=== PATIENT | female | born 1940 | race Caucasian/White ===

== ENCOUNTER 2017-01-12 09:22 | Inpatient (IN) | payer OTHER ==
[~2017-01-12] VITALS: Ht 149.9 cm; Wt 44.1 kg
[~2017-01-12 09:22] MED LIST: ATOR40TA68 PO; CLON-412 PO; DICL75TA2 PO; ESCI10TA48 PO; FELO5TAB35 PO; LOSA1TAB20 PO; TRAZ100T15 PO; ZOLP5TAB PO
[2017-01-12] MEDS ORDERED: SOD CHLORIDE 0.9% 1,000 ML IV STA (09:41)
[2017-01-12] MEDS ORDERED: ONDANSETRON 4 MG INJ IV STA (09:41)
[2017-01-12 10:07] LABS: BASOPHILS % 0.2 % (0.0-2.0); HEMOGLOBIN 7.7 g/dl (12.0-16.0); LYMPHOCYTES # 0.7 10^3/ul (0.8-2.9); LYMPHOCYTES % 4.4 % (15.0-51.0); MEAN CORPUSCULAR HEMOGLOBIN 31.4 pg (29.0-33.0); MEAN CORPUSCULAR HGB CONC 33.5 g/dl (32.0-37.0); MEAN CORPUSCULAR VOLUME 93.9 fl (82.0-101.0); MONOCYTE # 0.2 10^3/ul (0.3-0.9); MONOCYTES % 1.4 % (0.0-11.0); NEUTROPHILS % 92.8 % (39.0-77.0); PLATELET COUNT 253 10^3/UL (140-415); RED BLOOD COUNT 2.45 10^6/ul (4.20-5.40); WHITE BLOOD COUNT 14.7 10^3/ul (4.8-10.8)
[2017-01-12 10:32] LABS: ALBUMIN 3.5 g/dl (3.3-4.9); ALBUMIN/GLOBULIN RATIO 1.12; BILIRUBIN,INDIRECT 0.1 mg/dl (0-1.1); BILIRUBIN,TOTAL 0.1 mg/dl (0.2-1.3); CALCIUM 8.8 mg/dl (8.4-10.2); CREATININE 4.52 mg/dl (0.44-1.00); POTASSIUM 5.1 mmol/L (3.5-5.1); TOTAL PROTEIN 6.6 g/dl (6.1-8.1)
[2017-01-12] MEDS ORDERED: SOD CHLORIDE 0.9% 250 ML IV ONE (10:32)
[2017-01-12 10:44] LABS: TROPONIN-I 0.026 ng/ml (0.00-0.12)
[2017-01-12 12:00] VITALS: TEMP 97.6
[2017-01-12] MEDS ORDERED: ONDANSETRON 4 MG INJ IV PRN ×2 (12:00→16:00)
[2017-01-12] MEDS ORDERED: ACETAMINOPHEN 325 MG TAB PO PRN ×2 (12:00→16:00)
--- NOTE | 2017-01-12 12:46 | CONS ---
Date/Time of Note Date/Time of Note DATE: 01/12/17 TIME: 12:45 Assessment/Plan Assessment/Plan Additional Assessment/Plan 1. acute kidney injury 2/2 severe prerenal azotemia, no previous Cr available for comparison 2. rule out CKD 3. HTN 4. hyperlipidemia 5. anxiety, depression plan: seen in ED, NS at 100 cc/hr URine studies has been ordered, Renal US has been ordered CK total, Uric acid Iron panel sent by sc, stool for occult blood, PRBC as needed will follow up Thanks for consultation Consultation Date/Type/Reason Admit Date/Time 01/12/2017 Date of Consultation: Jan 12, 2017 Type of Consultation: NEPHROLOGY Reason for Consultation acute renal failure Referring Provider: ALEXANDRA ELIZONDO 76-year-old female with hypertension who presents with nausea and diarrhea. She denies vomiting. The symptoms started yesterday. She has "stomach pain". She has had no treatment as of yet. She denies fevers. She was brought in by ambulance. She denies any bleeding at this time. She does not remove the name of her primary doctor. she is noted to have BUN 88, Cr 4.52, afebrile, no chest pain, no palpitaton, renal has been consulted for REBECCA Constitutional: no complaints Eyes: no complaints ENT: no complaints Respiratory: shortness of breath Cardiovascular: lightheadedness, no complaints Gastrointestinal: diarrhea, nausea Genitourinary: no complaints Musculoskeletal: no complaints Skin: no complaints Neurologic: no complaints Endocrine: no complaints Lymphatic: no complaints Psychological: no complaints Immunologic: no complaints Past Medical History Medical History: high cholesterol, hypertension, other (anxiety, depression, smokin g) Past Surgical History Past Surgical Hx: other (Right lumpectomy, bilateral knee surgery ) Family History Significant Family History: no pertinent family hx Social History Alcohol Use: none Smoking Status: Current some day smoker Exam/Review of Systems Vital Signs Vitals Vital Signs Date Time Temp Pulse Resp B/P Pulse Ox O2 Delivery O2 Flow Rate FiO2 01/12/17 12:00 97.6 96 16 113/58 99 Room Air Exam Constitutional: alert, other (dry mucous membrane ) Psych: no complaints Head: normocephalic Eyes: EOMI, nl conjunctiva ENMT: nl external ears & nose, nl lips & teeth Neck: non-tender, supple Respiratory: clear to auscultation, normal air movement Cardiovascular: nl pulses, regular rate and rhythm Gastrointestinal: soft Musculoskeletal: nl extremities to inspection, nl gait and stance Extremities: normal pulses Neurological: INFORMATICA ARCHITECT II-XII intact Skin: other (dry skin and mucous membrane ) Lymph: nl lymph nodes Results Result Diagram: 01/12/17 0945 01/12/17 0945 Results 24 hrs Laboratory Tests Test 01/12/17 09:45 White Blood Count 14.7 #H Red Blood Count 2.45 #L Hemoglobin 7.7 #L Hematocrit 23.0 #L Mean Corpuscular Volume 93.9 Mean Corpuscular Hemoglobin 31.4 Mean Corpuscular Hemoglobin Concent 33.5 Red Cell Distribution Width 15.0 H Platelet Count 253 Mean Platelet Volume 9.0 # Neutrophils % 92.8 H Lymphocytes % 4.4 L Monocytes % 1.4 Eosinophils % 0.0 Basophils % 0.2 Nucleated Red Blood Cells % 0.0 Neutrophils # (Manual) 14 H Lymphocytes # 0.7 L Monocytes # 0.2 L Eosinophils # 0.0 Basophils # 0.0 Nucleated Red Blood Cells # 0.0 Sodium Level 137 Potassium Level 5.1 Chloride Level 97 Carbon Dioxide Level 21 Anion Gap 24 H Blood Urea Nitrogen 88 H Creatinine 4.52 H Glucose Level 124 Calcium Level 8.8 Total Bilirubin 0.1 L Direct Bilirubin 0.00 Indirect Bilirubin 0.1 Aspartate Amino Transf (AST/SGOT) 34 Alanine Aminotransferase (ALT/SGPT) 45 Alkaline Phosphatase 115 Troponin I 0.026 Total Protein 6.6 Albumin 3.5 Globulin 3.10 Albumin/Globulin Ratio 1.12 Lipase 34 JESSE STELEE MD Jan 12, 2017 12:46
[2017-01-12 12:59] LABS: RETICULOCYTE COUNT % 1.5 % (0.5-1.5)
--- NOTE | 2017-01-12 13:34 | ERA ---
ER Documentation Chief Complaint Date/Time DATE: 01/12/17 TIME: 13:32 Chief Complaint flu like symptoms weakness HPI Patient is a 76-year-old female with hypertension who presents with nausea and diarrhea. She denies vomiting. The symptoms started yesterday. She has "stomach pain". She has had no treatment as of yet. She denies fevers. She was brought in by ambulance. She denies any bleeding at this time. She does not remove the name of her primary doctor. ROS All systems reviewed and are negative except as per history of present illness. Medications Home Meds Active Scripts Clonazepam* (Klonopin*) 1 Mg Tablet, 1 MG PO Q8H Y for ANXIETY, #30 TAB Prov:REGAN FERRELL 11/08/14 Reported Medications Escitalopram Oxalate* (Escitalopram Oxalate*) 10 Mg Tablet, 10 MG PO DAILY, TAB 11/07/14 Atorvastatin* (Atorvastatin*) 40 Mg Tablet, 40 MG PO HS, TAB 11/07/14 Trazodone Hcl* (Trazodone Hcl*) 100 Mg Tablet, 100 MG PO HS Y for INSOMNIA, TAB 11/07/14 Diclofenac Sodium* (Diclofenac Sodium*) 75 Mg Tablet.dr, 75 MG PO BID, TAB 11/07/14 Losartan-Hydrochlorothiazide (Losartan-HCTZ) 100-25 Mg Tab, 1 TAB PO DAILY, TAB 11/07/14 Felodipine* (Felodipine*) 5 Mg Tab.sr.24h, 5 MG PO BID, TAB.SA 11/07/14 Zolpidem Tartrate* (Ambien*) 5 Mg Tablet, 2.5 MG PO HS Y for INSOMNIA, TAB 11/07/14 Allergies Allergies: Coded Allergies: No Known Allergy (Unverified , 11/08/14) PMhx/Soc History of Surgery: Yes (bilateral knee sx, Rt lumpectomy) Anesthesia Reaction: No Hx Neurological Disorder: No Hx Cardiac Disorders: Yes (htn, high cholesterol) Hx Psychiatric Problems: Yes (anxiety, depression) Hx Miscellaneous Medical Probl: No Hx Alcohol Use: No Hx Substance Use: No Hx Tobacco Use: Yes Smoking Status: Current some day smoker FmHx Family History: No diabetes Physical Exam Vitals Vital Signs Date Time Temp Pulse Resp B/P Pulse Ox O2 Delivery O2 Flow Rate FiO2 01/12/17 12:00 97.6 96 16 113/58 99 Room Air 01/12/17 09:32 98.1 60 20 117/58 99 01/12/17 09:32 98.6 68 18 117/60 96 Physical Exam Const: No acute distress Head: Atraumatic Eyes: Normal Conjunctiva ENT: Normal External Ears, Nose and Mouth. Neck: Full range of motion..~ No meningismus. Resp: Clear to auscultation bilaterally Cardio: Regular rate and rhythm, no murmurs Abd: Soft, non tender, non distended. Normal bowel sounds Skin: Pale skin Back: No midline or flank tenderness Ext: No cyanosis, or edema Neur: Awake and alert Psych: Normal Mood and Affect Result Diagram: 01/12/1745 01/12/1745 Results 24 hrs Laboratory Tests Test 01/12/17 09:45 White Blood Count 14.710^3/ul Red Blood Count 2.4510^6/ul Hemoglobin 7.7g/dl Hematocrit 23.0% Mean Corpuscular Volume 93.9fl Mean Corpuscular Hemoglobin 31.4pg Mean Corpuscular Hemoglobin Concent 33.5g/dl Red Cell Distribution Width 15.0% Platelet Count 99667^3/UL Mean Platelet Volume 9.0fl Neutrophils % 92.8% Lymphocytes % 4.4% Monocytes % 1.4% Eosinophils % 0.0% Basophils % 0.2% Nucleated Red Blood Cells % 0.0/100WBC Neutrophils # (Manual) 1410^3/ul Lymphocytes # 0.710^3/ul Monocytes # 0.210^3/ul Eosinophils # 0.010^3/ul Basophils # 0.010^3/ul Nucleated Red Blood Cells # 0.010^3/ul Absolute Reticulocyte Count 0.036X10^6 Percent Reticulocyte Count 1.5% Sodium Level 137mmol/L Potassium Level 5.1mmol/L Chloride Level 97mmol/L Carbon Dioxide Level 21mmol/L Anion Gap 24 Blood Urea Nitrogen 88mg/dl Creatinine 4.52mg/dl Glucose Level 124mg/dl Calcium Level 8.8mg/dl Total Bilirubin 0.1mg/dl Direct Bilirubin 0.00mg/dl Indirect Bilirubin 0.1mg/dl Aspartate Amino Transf (AST/SGOT) 34IU/L Alanine Aminotransferase (ALT/SGPT) 45IU/L Alkaline Phosphatase 115IU/L Troponin I 0.026ng/ml Total Protein 6.6g/dl Albumin 3.5g/dl Globulin 3.10g/dl Albumin/Globulin Ratio 1.12 Lipase 34U/L Current Medications Medications (Trade) Dose Ordered Sig/Jodi Route PRN Reason Start Time Stop Time Status Last Admin Dose Admin Sodium Chloride (NS) 1,000 ml @ 1,000 mls/hr Q1H STAT IV 01/12/17 09:41 01/12/17 10:40 DC 01/12/17 10:07 Ondansetron HCl 4 mg 4 mg ONCE STAT IV 01/12/17 09:41 01/12/17 09:43 DC 01/12/17 10:07 Sodium Chloride (NS) 250 ml @ 0 mls/hr Q0M ONCE IV 01/12/17 10:32 01/12/17 10:34 DC 01/12/17 10:32 Ondansetron HCl (Zofran Inj) 4 mg BRIDGE ORDER PRN IV NAUSEA AND/OR VOMITING 01/12/17 12:00 01/13/17 11:59 Acetaminophen 650 mg 650 mg ER BRIDGE PRN PO MILD PAIN/FEVER 01/12/17 12:00 01/13/17 11:59 Sodium Chloride (NS) 1,000 ml @ 100 mls/hr Q10H IV 01/12/17 13:00 Procedures/MDM Smoking Cessation Therapy: Pt. was lectured for greater than 3 minutes on the health risks of continued smoking and the benefits of cessation. Patient is a 76-year-old female presents with acute anemia as well as acute renal failure. Her creatinine has gone from 1-4.5. The patient also has a hemoglobin of 7.7 and appears pale. She will be treated with normal saline fluid resuscitation and 1 unit of packed red blood cells. I spoke with Dr. Olivier from [facility] who will admit the patient to a medical surgical bed. I also spoke with Dr. Art Gil for consultation from nephrology. Critical Care: Time: 35 minutes excluding all billable procedures. Treatments/Evaluations: Close monitoring and treatment of unstable vital signs, cardiorespiratory, and neurologic status, while maintaining tight balance of fluid, respiratory, and cardiac interventions. Departure Diagnosis: Primary Impression: Acute renal failure Qualified Code: N17.9 - Acute renal failure, unspecified acute renal failure type Additional Impression: Anemia Qualified Code: D64.9 - Anemia, unspecified type Condition: KYLIE Sands MD Jan 12, 2017 13:34
--- NOTE | 2017-01-12 14:24 | RADRPT ---
PROCEDURE: Retroperitoneal US. CLINICAL INDICATION: acute renal failure TECHNIQUE: Multiple sonographic images of the retroperitoneum were obtained. The images were revi ewed on a PACS workstation. COMPARISON: No prior studies are available for comparison. FINDINGS: The right kidney measures 11.0 x 4.1 cm. The left kidney measures 6.3 x 3.0 cm. The right renal kenneth ex measures up to 1 cm in thickness. The renal parenchymal echotexture is in the left greater than right kidneys. There is no hydronephrosis. There is no focal renal mass or calcification seen. The bladder is grossly unremarkable. IMPRESSION: Bilateral kidneys are atrophic and echogenic, more on the left than the right, likely due to medical renal disease. Correlation with BUN and creatinine levels is recommended. No hydronephrosis bilaterally. The bladder is grossly unremarkable. RPTAT: EE Physician Gunnar Date Time Electronically viewed and signed by Physician Gunnar on 01/12/2017 14:24 /
[2017-01-12] MEDS: SOD CHLORIDE 0.9% 1,000 ML IV SCH ×2 (15:18→22:34)
[2017-01-12 15:25] LABS: IRON 90 ug/dl (35-150)
[2017-01-12 15:34] LABS: TOTAL IRON BINDING CAPACITY 195 ug/dl (241-421)
--- NOTE | 2017-01-12 15:56 | HP ---
Date/Time of Note Date/Time of Note DATE: 01/12/17 TIME: 15:56 Assessment/Plan VTE Prophylaxis VTE Prophylaxis Intervention: SCD's Lines/Catheters Urinary Cath still in place: No Assessment/Plan Assessment/Plan 76-year-old female with: 1. Acute kidney injury, prerenal azotemia, renal ultrasound with signs of possible chronic medical renal disease, appreciate recommendations from Dr. Art Gil, continue IV fluids for now, Additional workup including total CK, uric acid pending. Also urine studies ordered by Dr. Gil pending Renal ultrasound Patient having subacute diarrhea, diarrhea workup ordered. Strict I's and O Renal diet Repeat BMP in a.m. 2. Subacute diarrhea for the past 3 weeks at least, patient likely prerenal azotemia from ongoing diarrhea. Apparently she already had authorization to have a colonoscopy by Dr. Hook Check stool studies Dr. Keen has been informed, he will see the patient to see if he needs to do a colonoscopy on this admission 3. Anemia, symptomatic, severe, acute on chronic likely. Patient to receive 2 units of packed red blood cells today No signs of acute bleeding, fecal occult blood pending Check CBC in a.m., additional transfusion as needed 4. Hypertension: Resume home medications and hold if needed 5. Anxiety/major depressive disorder: Continue home medications 6. Hyperlipidemia: Continue statin Prophylaxis: Pepcid for GI prophylaxis, SCDs to lower extremity for DVT prophylaxis Disposition: IV fluids, GI workup and evaluation, nephrology following. HPI/ROS Admit Date/Time Admit Date/Time 01/12/2017 Hx of Present Illness Chief complaint: Nausea, generalized weakness History of presenting illness: This is a 76-year-old female, with history of hypertension, chronic pain, major depressive disorder, anemia recently diagnosed , ongoing watery diarrhea for the past 3 weeks at least who was in the process of starting lab work and for colonoscopy that was planned to be done soon by Dr. Hook and she presented to the ER today with reported nausea and generalized weakness. Patient is found to have acute kidney injury, creatinine is above 4, BUN up to 88. She is also anemic with hemoglobin down to 7.7, dehydrated with prerenal azotemia. Patient reports that again for the past 3 weeks at least she has been having watery diarrhea multiple episodes, she denies any melena or hematochezia. She denies any hematemesis. She reports nausea but no vomiting. She reports increasing generalized weakness and dyspnea on exertion. She denies any previous cardiac disease. She denies chest pain or any other focal weakness. She has been evaluated by nephrology in the emergency department already, she does have prerenal azotemia requiring IV fluids currently. She is also severely anemic hemoglobin is likely less than 7.7, she received 1 unit of packed red blood cell and will receive an additional unit now. We will complete her diarrhea workup with a stool studies to be sent from the hospital, also I will contact Dr. Hook to see if he would plan to do her colonoscopy while she is inpatient. ROS Eyes: no complaints ENT: no complaints Respiratory: shortness of breath Cardiovascular: lightheadedness, no complaints Gastrointestinal: diarrhea, nausea Genitourinary: no complaints Musculoskeletal: no complaints Skin: no complaints Neurologic: no complaints Lymphatic: no complaints Psychological: no complaints Immunologic: no complaints PMH/Family/Social Past Medical History Hypertension Hyperlipidemia Chronic pain Anxiety/major depressive disorder Medical History: high cholesterol, hypertension, other (anxiety, depression, smokin g) Past Surgical History Status post left breast lumpectomy remotely Past Surgical Hx: other (Right lumpectomy, bilateral knee surgery ) Family History Significant Family History: no pertinent family hx Social History Alcohol Use: none Smoking Status: Former smoker Drug Use: none Exam/Review of Systems Vital Signs Vitals Vital Signs Date Time Temp Pulse Resp B/P Pulse Ox O2 Delivery O2 Flow Rate FiO2 01/12/17 12:00 97.6 96 16 113/58 99 Room Air Exam Constitutional: alert, frail, oriented, other (Elderly) Respiratory: clear to auscultation, normal air movement Cardiovascular: nl pulses, regular rate and rhythm Gastrointestinal: non-tender, soft Musculoskeletal: nl extremities to inspection, nl gait and stance Extremities: normal pulses, other (No edema, clubbing or cyanosis) Neurological: SKEIN YARD DRIER II-XII intact, nl mental status, nl speech, nl strength (At baseline) Labs Result Diagram: 01/12/17 0945 01/12/17 0945 Medications Medications Home medication: See medication reconciliation Current Medications Sodium Chloride (NS) 1,000 ml @ 100 mls/hr Q10H IV Last administered on t 15:18; Admin Dose 100 MLS/HR; Start 01/12/17 at 13:00 Ondansetron HCl (Zofran Inj) 4 mg Q6H PRN IV NAUSEA AND/OR VOMITING; Start at 16:00; Status UNV Acetaminophen (Tylenol Tab) 650 mg Q6H PRN PO PAIN LEVEL 1-3 OR FEVER; Start at 16:00; Status UNV Acetaminophen/ Hydrocodone Bitart ([place] (5/325)) 1 tab Q6H PRN PO MODERATE PAIN LEVEL 4-6; Start 01/12/17 at 16:00; Status UNV Hydromorphone HCl (Dilaudid) 0.5 mg Q4H PRN IV SEVERE PAIN LEVEL 7-10; Start at 16:00; Status UNV Docusate Sodium (Colace) 100 mg Q12H PRN PO CONSTIPATION; Start 01/12/17 at 16: 00; Status UNV Magnesium Hydroxide (Milk Of Mag) 30 ml DAILY PRN PO CONSTIPATION; Start at 16:00; Status UNV Bisacodyl (Dulcolax Supp) 10 mg DAILY PRN OR CONSTIPATION; Start 01/12/17 at 16 :00; Status UNV Famotidine (Pepcid) 20 mg Q12 PO ; Start 01/12/17 at 21:00; Status UNV Atorvastatin Calcium (Lipitor) 40 mg HS PO ; Start 01/12/17 at 21:00; Status UNV Clonazepam (Klonopin) 1 mg Q8H PRN PO ANXIETY; Start 01/12/17 at 16:00; Status UNV Escitalopram Oxalate (Lexapro) 10 mg DAILY PO ; Start 01/13/17 at 09:00; Status UNV Trazodone HCl (Desyrel) 100 mg HS PRN PO INSOMNIA; Start 01/12/17 at 16:00; Status UNV Procedures Procedures PROCEDURE: Retroperitoneal US. CLINICAL INDICATION: acute renal failure TECHNIQUE: Multiple sonographic images of the retroperitoneum were obtained. The images were reviewed on a PACS workstation. COMPARISON: No prior studies are available for comparison. FINDINGS: The right kidney measures 11.0 x 4.1 cm. The left kidney measures 6.3 x 3.0 cm. The right renal cortex measures up to 1 cm in thickness. The renal parenchymal echotexture is in the left greater than right kidneys. There is no hydronephrosis. There is no focal renal mass or calcification seen. The bladder is grossly unremarkable. IMPRESSION: Bilateral kidneys are atrophic and echogenic, more on the left than the right, likely due to medical renal disease. Correlation with BUN and creatinine levels is recommended. No hydronephrosis bilaterally. The bladder is grossly unremarkable. RPTAT: EE Eduardo Azul Physician Date Time Electronically viewed and signed by Eduardo Azul Physician on 01/12/2017 14:24 ALEXANDRA ELIZONDO Jan 12, 2017 15:56
[2017-01-12] MEDS ORDERED: clonAZEPAM 0.5 MG TAB PO PRN (16:00)
[2017-01-12] MEDS ORDERED: NACL 0.9% 3 ML SYG IV SCH (16:00)
[2017-01-12] MEDS ORDERED: HYDROCODONE/APAP (5/325) TAB PO PRN (16:00)
[2017-01-12] MEDS ORDERED: DOCUSATE SODIUM 100 MG CAP PO PRN (16:00)
[2017-01-12] MEDS ORDERED: MAGNESIUM HYDROXIDE 30ML CUP PO PRN (16:00)
[2017-01-12] MEDS ORDERED: HYDROmorphONE 1 MG/ML SYG IV PRN (16:00)
[2017-01-12] MEDS ORDERED: BISACODYL 10 MG SUPP PR PRN (16:00)
[2017-01-12 17:05] VITALS: Ht 149.9 cm; Wt 44.1 kg
[2017-01-12 17:10] VITALS: BP 123/58; PULSE 75; RESP 20
[2017-01-12 21:14] VITALS: BP 101/46; RESP 16
[2017-01-12] MEDS: FAMOTIDINE 20 MG TAB PO SCH (21:16)
[2017-01-12] MEDS: traZODone 100 MG TAB PO PRN (21:16)
[2017-01-12] MEDS: ATORVASTATIN 40 MG TAB PO SCH (21:16)
[2017-01-13 02:52] VITALS: BP 98/56; RESP 16
[2017-01-13 06:39] LABS: BASOPHIL # 0.1 10^3/ul (0.0-0.1); BASOPHILS % 0.2 % (0.0-2.0); HEMATOCRIT 23.1 % (37.0-47.0); HEMOGLOBIN 7.7 g/dl (12.0-16.0); LYMPHOCYTES % 4.8 % (15.0-51.0); MEAN CORPUSCULAR HEMOGLOBIN 30.8 pg (29.0-33.0); MEAN CORPUSCULAR HGB CONC 33.3 g/dl (32.0-37.0); MEAN CORPUSCULAR VOLUME 92.4 fl (82.0-101.0); MEAN PLATELET VOLUME 9.4 fl (7.4-10.4); MONOCYTE # 0.5 10^3/ul (0.3-0.9); MONOCYTES % 2.3 % (0.0-11.0); NEUTROPHILS % 90.5 % (39.0-77.0); PLATELET COUNT 176 10^3/UL (140-415); RED CELL DISTRIBUTION WIDTH 14.2 % (11.5-14.5); WHITE BLOOD COUNT 21.7 10^3/ul (4.8-10.8)
[2017-01-13 07:11] LABS: CREATININE 4.58 mg/dl (0.44-1.00); POTASSIUM 5.1 mmol/L (3.5-5.1)
[2017-01-13 08:12] LABS: PHOSPHORUS 5.2 mg/dl (2.5-4.9)
[2017-01-13 08:36] VITALS: BP 101/53; RESP 22
[2017-01-13] MEDS: SOD CHLORIDE 0.9% 1,000 ML IV SCH ×2 (09:00→18:42)
[2017-01-13] MEDS: ESCITALOPRAM 10 MG TAB PO SCH (09:15)
--- NOTE | 2017-01-13 11:16 | PN ---
Date/Time of Note Date/Time of Note DATE: 01/13/17 TIME: 10:57 Assessment/Plan VTE Prophylaxis VTE Prophylaxis Intervention: SCD's Lines/Catheters IV [facility] [place] [employer] line still needed: No Urinary Cath still in place: No Assessment/Plan Assessment/Plan 1. Acute kidney injury: slightly worse today. She has prerenal azotemia, and chronic medical renal disease, appreciate recommendations from Dr. Art Gil , continue IV fluids for now, Patient having subacute diarrhea, diarrhea workup ordered. Strict I's and O Renal diet Repeat BMP in a.m. 2. Subacute diarrhea for the past 3 weeks at least, patient likely prerenal azotemia from ongoing diarrhea. Apparently she already had authorization to have a colonoscopy by Dr. Hook Check stool studies as the results are still pending. Dr. Keen has been informed, he will see the patient to see if he needs to do a colonoscopy on tomorrow. Upon his request, we are obtaining a CT scan of the abdomen and pelvis with oral contrast to evaluate for ischemic colitis. 3. Anemia, symptomatic, severe, acute on chronic likely. Her hgb remianed at 7.7 after two units of PRBCs. Patient to receive 2 units of packed red blood cells again today after discussion with Dr. Hook. No signs of acute bleeding, fecal occult blood positive. Check CBC in a.m., additional transfusion as needed 4. Hypertension: Resume home medications and hold if needed 5. Anxiety/major depressive disorder: stable, worse after the of her recently. Continue home medications 6. Hyperlipidemia: Continue statin Prophylaxis: Pepcid for GI prophylaxis, SCDs to lower extremity for DVT prophylaxis Disposition: IV fluids, GI workup and evaluation, nephrology following. Subjective 24 Hr Interval Summary Free Text/Dictation No complaints. Still having some watery diarrhea. No other events overnight. Had two units PRBCs, but hgb remains low at 7.7. Exam/Review of Systems Vital Signs Vitals Vital Signs Date Time Temp Pulse Resp B/P Pulse Ox O2 Delivery O2 Flow Rate FiO2 01/13/17 08:36 98.2 102 22 101/53 96 01/12/17 17:10 Room Air Intake and Output 01/12/17 01/12/17 01/13/17 15:00 23:00 07:00 Intake Total 750 ml 950 ml 500 ml Balance 750 ml 950 ml 500 ml Exam Constitutional: alert, oriented Psych: depression Head: normocephalic Eyes: nl conjunctiva Neck: supple Respiratory: clear to auscultation Cardiovascular: regular rate and rhythm Gastrointestinal: soft Extremities: normal pulses Results Result Diagram: 01/13/17 0543 01/13/17 0543 Results 24 hrs Laboratory Tests Test 01/12/17 17:30 01/13/17 02:30 01/13/17 05:43 01/13/17 07:16 Uric Acid 10.5 H Creatine Kinase 124 120 Stool Occult Blood POSITIVE White Blood Count 21.7 #H Red Blood Count 2.50 L Hemoglobin 7.7 L Hematocrit 23.1 L Mean Corpuscular Volume 92.4 Mean Corpuscular Hemoglobin 30.8 Mean Corpuscular Hemoglobin Concent 33.3 Red Cell Distribution Width 14.2 Platelet Count 176 # Mean Platelet Volume 9.4 Neutrophils % 90.5 H Lymphocytes % 4.8 L Monocytes % 2.3 Eosinophils % 0.0 Basophils % 0.2 Nucleated Red Blood Cells % 0.0 Neutrophils # (Manual) 20 H Lymphocytes # 1.0 Monocytes # 0.5 Eosinophils # 0.0 Basophils # 0.1 Nucleated Red Blood Cells # 0.0 Sodium Level 136 Potassium Level 5.1 Chloride Level 109 # Carbon Dioxide Level 15 L Anion Gap 17 #H Blood Urea Nitrogen 103 H Creatinine 4.58 H Glucose Level 106 Calcium Level 8.0 L Phosphorus Level 5.2 H Magnesium Level 2.0 Lab Scanned Report BLOOD TRANSFUSION Medications Medications Current Medications Sodium Chloride (NS) 1,000 ml @ 100 mls/hr Q10H IV Last administered on t 15:18; Admin Dose 100 MLS/HR; Start 01/12/17 at 13:00 Ondansetron HCl (Zofran Inj) 4 mg Q6H PRN IV NAUSEA AND/OR VOMITING; Start at 16:00 Acetaminophen (Tylenol Tab) 650 mg Q6H PRN PO PAIN LEVEL 1-3 OR FEVER; Start at 16:00 Acetaminophen/ Hydrocodone Bitart ([place] (5/325)) 1 tab Q6H PRN PO MODERATE PAIN LEVEL 4-6; Start 01/12/17 at 16:00 Hydromorphone HCl (Dilaudid) 0.5 mg Q4H PRN IV SEVERE PAIN LEVEL 7-10; Start at 16:00 Docusate Sodium (Colace) 100 mg Q12H PRN PO CONSTIPATION; Start 01/12/17 at 16: 00 Magnesium Hydroxide (Milk Of Mag) 30 ml DAILY PRN PO CONSTIPATION; Start at 16:00 Bisacodyl (Dulcolax Supp) 10 mg DAILY PRN ME CONSTIPATION; Start 01/12/17 at 16 :00 Famotidine (Pepcid) 20 mg HS PO Last administered on 01/12/17 21:16; Admin Dose 20 MG; Start 01/12/17 at 21:00 Atorvastatin Calcium (Lipitor) 40 mg HS PO Last administered on 01/12/17 21:16 ; Admin Dose 40 MG; Start 01/12/17 at 21:00 Clonazepam (Klonopin) 1 mg Q8H PRN PO ANXIETY; Start 01/12/17 at 16:00 Escitalopram Oxalate (Lexapro) 10 mg DAILY PO Last administered on 01/13/17 09 :15; Admin Dose 10 MG; Start 01/13/17 at 09:00 Trazodone HCl (Desyrel) 100 mg HS PRN PO INSOMNIA Last administered on 21:16; Admin Dose 100 MG; Start 01/12/17 at 16:00 SHAYAN BECKWITH MD Jan 13, 2017 11:08
[2017-01-13] MEDS ORDERED: BARIUM SULF 2% 450 ML BTL (BERRY SMOOTHIE) PO ONE (11:30)
--- NOTE | 2017-01-13 16:01 | CONS ---
Date/Time of Note Date/Time of Note DATE: 01/13/17 TIME: 15:09 Assessment/Plan Assessment/Plan Additional Assessment/Plan 1. acute kidney injury 2/2 severe prerenal azotemia, no previous Cr available for comparison - increase NS at 125 cc/hr 2. rule out CKD 3. HTN 4. hyperlipidemia 5. anxiety, depression 6. Elevated uric acid- will start on Allopurinol 100m g po BID 7. Stool for occult blood- positive. Plan for colonoscopy in am 8. Anemia- 2 PRBC transfusion per PMD TODAY 9. Acute Diarrhea- CT scan of the abdomen and pelvis with oral contrast to evaluate for ischemic colitis per PMD plan: NS at 125 cc/hr Urine studies has been ordered, Renal US has been ordered CK total, Uric acid Iron panel sent by ri, PRBC as needed will follow up Dw Dr brandie Nuñez Consultation Date/Type/Reason Admit Date/Time Jan 12, 2017 at 14:52 Initial Consult Date 01/12/17 Type of Consultation: NEPHROLOGY Referring Provider: ALEXANDRA ELIZONDO 24 HR Interval Summary Free Text/Dictation alert, resting,stool ob positive, H/H low- will get 2 units PRBC, scheduled for CT Abdomen /pelvis today. .Plan for colonoscopy am .Family at bed side- all Qs answered, dw staff Constitutional: requiring IVF Exam/Review of Systems Vital Signs Vitals Vital Signs Date Time Temp Pulse Resp B/P Pulse Ox O2 Delivery O2 Flow Rate FiO2 01/13/17 08:36 98.2 102 22 101/53 96 01/12/17 17:10 Room Air Intake and Output 01/12/17 01/12/17 01/13/17 15:00 23:00 07:00 Intake Total 750 ml 950 ml 500 ml Balance 750 ml 950 ml 500 ml Exam Constitutional: alert, oriented, well developed Respiratory: clear to auscultation, normal air movement Cardiovascular: nl pulses, regular rate and rhythm Gastrointestinal: non-tender, soft Musculoskeletal: nl extremities to inspection Extremities: normal pulses Neurological: nl mental status, nl speech Results Result Diagram: 01/13/17 0543 01/13/17 0543 Results 24 hrs Laboratory Tests Test 01/12/17 17:30 01/13/17 02:30 01/13/17 05:43 01/13/17 07:16 Uric Acid 10.5 H Creatine Kinase 124 120 Stool Occult Blood POSITIVE White Blood Count 21.7 #H Red Blood Count 2.50 L Hemoglobin 7.7 L Hematocrit 23.1 L Mean Corpuscular Volume 92.4 Mean Corpuscular Hemoglobin 30.8 Mean Corpuscular Hemoglobin Concent 33.3 Red Cell Distribution Width 14.2 Platelet Count 176 # Mean Platelet Volume 9.4 Neutrophils % 90.5 H Lymphocytes % 4.8 L Monocytes % 2.3 Eosinophils % 0.0 Basophils % 0.2 Nucleated Red Blood Cells % 0.0 Neutrophils # (Manual) 20 H Lymphocytes # 1.0 Monocytes # 0.5 Eosinophils # 0.0 Basophils # 0.1 Nucleated Red Blood Cells # 0.0 Sodium Level 136 Potassium Level 5.1 Chloride Level 109 # Carbon Dioxide Level 15 L Anion Gap 17 #H Blood Urea Nitrogen 103 H Creatinine 4.58 H Glucose Level 106 Calcium Level 8.0 L Phosphorus Level 5.2 H Magnesium Level 2.0 Lab Scanned Report BLOOD TRANSFUSION Medications Medications Current Medications Sodium Chloride (NS) 1,000 ml @ 125 mls/hr Q8H IV Last administered on t 15:18; Admin Dose 100 MLS/HR; Start 01/12/17 at 13:00 Ondansetron HCl (Zofran Inj) 4 mg Q6H PRN IV NAUSEA AND/OR VOMITING; Start at 16:00 Acetaminophen (Tylenol Tab) 650 mg Q6H PRN PO PAIN LEVEL 1-3 OR FEVER; Start at 16:00 Acetaminophen/ Hydrocodone Bitart ([place] (5/325)) 1 tab Q6H PRN PO MODERATE PAIN LEVEL 4-6; Start 01/12/17 at 16:00 Hydromorphone HCl (Dilaudid) 0.5 mg Q4H PRN IV SEVERE PAIN LEVEL 7-10; Start at 16:00 Docusate Sodium (Colace) 100 mg Q12H PRN PO CONSTIPATION; Start 01/12/17 at 16: 00 Magnesium Hydroxide (Milk Of Mag) 30 ml DAILY PRN PO CONSTIPATION; Start at 16:00 Bisacodyl (Dulcolax Supp) 10 mg DAILY PRN [place] CONSTIPATION; Start 01/12/17 at 16 :00 Famotidine (Pepcid) 20 mg HS PO Last administered on 01/12/17 21:16; Admin Dose 20 MG; Start 01/12/17 at 21:00 Atorvastatin Calcium (Lipitor) 40 mg HS PO Last administered on 01/12/17 21:16 ; Admin Dose 40 MG; Start 01/12/17 at 21:00 Clonazepam (Klonopin) 1 mg Q8H PRN PO ANXIETY; Start 01/12/17 at 16:00 Escitalopram Oxalate (Lexapro) 10 mg DAILY PO Last administered on 01/13/17 09 :15; Admin Dose 10 MG; Start 01/13/17 at 09:00 Trazodone HCl (Desyrel) 100 mg HS PRN PO INSOMNIA Last administered on 21:16; Admin Dose 100 MG; Start 01/12/17 at 16:00 Allopurinol (Zyloprim) 100 mg BID PO ; Start 01/13/17 at 21:00 JOSE ARGUETA Jan 13, 2017 15:19
--- NOTE | 2017-01-13 17:31 | CONS ---
Date/Time of Note Date/Time of Note DATE: 01/13/17 TIME: 17:25 Consultation Date/Type/Reason Admit Date/Time Jan 12, 2017 at 14:52 Date of Consultation: Jan 12, 2017 Reason for Consultation Patient has severe diarrhea and anemia Referring Provider: GEORGIANA MICHELLE MD Hx of Present Illness Patient is admitted to the hospital because of severe anemia Social has got history of severe diarrhea Hemoglobin was found to be around 7 g And she developed renal failure Ulcers got white count elevation on questioning she has been having diarrhea for the past several weeks Some history of lactose intolerance is also noted history of antibiotic ingestion no history of abdominal pain Loss 20 pounds of weight she has no appetite no recent foreign travel Past medical history Bilateral knee surgery History patient does not smoke or drink medications prior to the admission inclusive trazodone was not on mirtazapine atorvastatin venlafaxine felodipine diclofenac potassium ciprofloxacin Physical examination patient is a 76-year-old white female who at this time she is alert Not in distress Pulse is 82 Blood pressure is 110/70 Cardiovascular exam normal heart Persistent abnormal breath sounds Abdomen is unremarkable Minimal left lower quadrant tenderness Clinical impression male patient presenting with history of weight loss chronic diarrhea doubt inflammatory bowel disease because of the age rule out colorectal neoplasm ischemic colitis No history suggestive of antibiotic-induced colitis Rule out microscopic colitis Plan at this time I recommend transfusion recommend CAT scan of the abdomen recommend a EGD and colonoscopy Constitutional: requiring IVF Eyes: no complaints ENT: no complaints Respiratory: shortness of breath Cardiovascular: lightheadedness, no complaints Gastrointestinal: diarrhea, nausea Genitourinary: no complaints Musculoskeletal: no complaints Skin: no complaints Neurologic: no complaints Endocrine: no complaints Lymphatic: no complaints Psychological: depression Immunologic: no complaints Past Medical History Medical History: high cholesterol, hypertension, other (anxiety, depression, smokin g) Past Surgical History Past Surgical Hx: other (Right lumpectomy, bilateral knee surgery ) Social History Alcohol Use: none Smoking Status: Former smoker Drug Use: none Exam/Review of Systems Vital Signs Vitals Vital Signs Date Time Temp Pulse Resp B/P Pulse Ox O2 Delivery O2 Flow Rate FiO2 01/13/17 08:36 98.2 102 22 101/53 96 01/12/17 17:10 Room Air Intake and Output 01/12/17 01/12/17 01/13/17 15:00 23:00 07:00 Intake Total 750 ml 950 ml 500 ml Balance 750 ml 950 ml 500 ml Results Result Diagram: 01/13/17 0543 01/13/17 0543 Results 24 hrs Laboratory Tests Test 01/12/17 17:30 01/13/17 02:30 01/13/17 05:43 01/13/17 07:16 Uric Acid 10.5 H Creatine Kinase 124 120 Stool Occult Blood POSITIVE White Blood Count 21.7 #H Red Blood Count 2.50 L Hemoglobin 7.7 L Hematocrit 23.1 L Mean Corpuscular Volume 92.4 Mean Corpuscular Hemoglobin 30.8 Mean Corpuscular Hemoglobin Concent 33.3 Red Cell Distribution Width 14.2 Platelet Count 176 # Mean Platelet Volume 9.4 Neutrophils % 90.5 H Lymphocytes % 4.8 L Monocytes % 2.3 Eosinophils % 0.0 Basophils % 0.2 Nucleated Red Blood Cells % 0.0 Neutrophils # (Manual) 20 H Lymphocytes # 1.0 Monocytes # 0.5 Eosinophils # 0.0 Basophils # 0.1 Nucleated Red Blood Cells # 0.0 Sodium Level 136 Potassium Level 5.1 Chloride Level 109 # Carbon Dioxide Level 15 L Anion Gap 17 #H Blood Urea Nitrogen 103 H Creatinine 4.58 H Glucose Level 106 Calcium Level 8.0 L Phosphorus Level 5.2 H Magnesium Level 2.0 Lab Scanned Report BLOOD TRANSFUSION Medications Medications Current Medications Sodium Chloride (NS) 1,000 ml @ 125 mls/hr Q8H IV Last administered on t 15:18; Admin Dose 100 MLS/HR; Start 01/12/17 at 13:00 Ondansetron HCl (Zofran Inj) 4 mg Q6H PRN IV NAUSEA AND/OR VOMITING; Start at 16:00 Acetaminophen (Tylenol Tab) 650 mg Q6H PRN PO PAIN LEVEL 1-3 OR FEVER; Start at 16:00 Acetaminophen/ Hydrocodone Bitart ([place] (5/325)) 1 tab Q6H PRN PO MODERATE PAIN LEVEL 4-6; Start 01/12/17 at 16:00 Hydromorphone HCl (Dilaudid) 0.5 mg Q4H PRN IV SEVERE PAIN LEVEL 7-10; Start at 16:00 Docusate Sodium (Colace) 100 mg Q12H PRN PO CONSTIPATION; Start 01/12/17 at 16: 00 Magnesium Hydroxide (Milk Of Mag) 30 ml DAILY PRN PO CONSTIPATION; Start at 16:00 Bisacodyl (Dulcolax Supp) 10 mg DAILY PRN [place] CONSTIPATION; Start 01/12/17 at 16 :00 Famotidine (Pepcid) 20 mg HS PO Last administered on 01/12/17 21:16; Admin Dose 20 MG; Start 01/12/17 at 21:00 Atorvastatin Calcium (Lipitor) 40 mg HS PO Last administered on 01/12/17 21:16 ; Admin Dose 40 MG; Start 01/12/17 at 21:00 Clonazepam (Klonopin) 1 mg Q8H PRN PO ANXIETY; Start 01/12/17 at 16:00 Escitalopram Oxalate (Lexapro) 10 mg DAILY PO Last administered on 01/13/17 09 :15; Admin Dose 10 MG; Start 01/13/17 at 09:00 Trazodone HCl (Desyrel) 100 mg HS PRN PO INSOMNIA Last administered on 21:16; Admin Dose 100 MG; Start 01/12/17 at 16:00 Allopurinol (Zyloprim) 100 mg BID PO ; Start 01/13/17 at 21:00 FARAZ COLLADO MD Jan 13, 2017 17:31
--- NOTE | 2017-01-13 17:34 | CONS ---
Date/Time of Note Date/Time of Note DATE: 01/13/17 TIME: 17:32 Assessment/Plan Assessment/Plan Chief Complaint/Hosp Course Patient is admitted to the hospital because of severe anemia Social has got history of severe diarrhea Hemoglobin was found to be around 7 g And she developed renal failure Ulcers got white count elevation on questioning she has been having diarrhea for the past several weeks Some history of lactose intolerance is also noted history of antibiotic ingestion no history of abdominal pain Loss 20 pounds of weight she has no appetite no recent foreign travel Problems: Consultation Date/Type/Reason Admit Date/Time Jan 12, 2017 at 14:52 Initial Consult Date 01/12/17 Type of Consultation: NEPHROLOGY Reason for Consultation Diarrhea and anemia Referring Provider: ALEXANDRA ELIZONDO 24 HR Interval Summary Free Text/Dictation Patient was seen by me yesterday and today also she appears to be alert Not in distress Abdomen is soft minimal left lower quadrant tenderness noted WBC count went up to 21,000 Clinical impression patient presenting with history of severe anemia renal failure diarrhea Rule out ischemic colitis doubt infectious colitis doubt colorectal neoplasm Plan recommend colonoscopy this time CAT scan of the abdomen is pending Recommend antibiotic therapy Exam/Review of Systems Vital Signs Vitals Vital Signs Date Time Temp Pulse Resp B/P Pulse Ox O2 Delivery O2 Flow Rate FiO2 01/13/17 08:36 98.2 102 22 101/53 96 01/12/17 17:10 Room Air Intake and Output 01/12/17 01/12/17 01/13/17 15:00 23:00 07:00 Intake Total 750 ml 950 ml 500 ml Balance 750 ml 950 ml 500 ml Results Result Diagram: 01/13/17 0543 01/13/17 0543 Results 24 hrs Laboratory Tests Test 01/13/17 02:30 01/13/17 05:43 01/13/17 07:16 Stool Occult Blood POSITIVE White Blood Count 21.7 #H Red Blood Count 2.50 L Hemoglobin 7.7 L Hematocrit 23.1 L Mean Corpuscular Volume 92.4 Mean Corpuscular Hemoglobin 30.8 Mean Corpuscular Hemoglobin Concent 33.3 Red Cell Distribution Width 14.2 Platelet Count 176 # Mean Platelet Volume 9.4 Neutrophils % 90.5 H Lymphocytes % 4.8 L Monocytes % 2.3 Eosinophils % 0.0 Basophils % 0.2 Nucleated Red Blood Cells % 0.0 Neutrophils # (Manual) 20 H Lymphocytes # 1.0 Monocytes # 0.5 Eosinophils # 0.0 Basophils # 0.1 Nucleated Red Blood Cells # 0.0 Sodium Level 136 Potassium Level 5.1 Chloride Level 109 # Carbon Dioxide Level 15 L Anion Gap 17 #H Blood Urea Nitrogen 103 H Creatinine 4.58 H Glucose Level 106 Calcium Level 8.0 L Phosphorus Level 5.2 H Magnesium Level 2.0 Creatine Kinase 120 Lab Scanned Report BLOOD TRANSFUSION Medications Medications Current Medications Sodium Chloride (NS) 1,000 ml @ 125 mls/hr Q8H IV Last administered on 15:18; Admin Dose 100 MLS/HR; Start 01/12/17 at 13:00 Ondansetron HCl (Zofran Inj) 4 mg Q6H PRN IV NAUSEA AND/OR VOMITING; Start at 16:00 Acetaminophen (Tylenol Tab) 650 mg Q6H PRN PO PAIN LEVEL 1-3 OR FEVER; Start at 16:00 Acetaminophen/ Hydrocodone Bitart ([place] (5/325)) 1 tab Q6H PRN PO MODERATE PAIN LEVEL 4-6; Start 01/12/17 at 16:00 Hydromorphone HCl (Dilaudid) 0.5 mg Q4H PRN IV SEVERE PAIN LEVEL 7-10; Start at 16:00 Docusate Sodium (Colace) 100 mg Q12H PRN PO CONSTIPATION; Start 01/12/17 at 16: 00 Magnesium Hydroxide (Milk Of Mag) 30 ml DAILY PRN PO CONSTIPATION; Start at 16:00 Bisacodyl (Dulcolax Supp) 10 mg DAILY PRN [place] CONSTIPATION; Start 01/12/17 at 16 :00 Famotidine (Pepcid) 20 mg HS PO Last administered on 01/12/17 21:16; Admin Dose 20 MG; Start 01/12/17 at 21:00 Atorvastatin Calcium (Lipitor) 40 mg HS PO Last administered on 01/12/17 21:16 ; Admin Dose 40 MG; Start 01/12/17 at 21:00 Clonazepam (Klonopin) 1 mg Q8H PRN PO ANXIETY; Start 01/12/17 at 16:00 Escitalopram Oxalate (Lexapro) 10 mg DAILY PO Last administered on 01/13/17 09 :15; Admin Dose 10 MG; Start 01/13/17 at 09:00 Trazodone HCl (Desyrel) 100 mg HS PRN PO INSOMNIA Last administered on 21:16; Admin Dose 100 MG; Start 01/12/17 at 16:00 Allopurinol (Zyloprim) 100 mg BID PO ; Start 01/13/17 at 21:00 FARAZ COLLADO MD Jan 13, 2017 17:34
[2017-01-13] MEDS ORDERED: LACTULOSE 30ML CUP NGT ONE (18:00)
[2017-01-13] MEDS: metroNIDAZOLE 500 MG/NS (PMX) 100 ML IVPB SCH ×2 (18:41→22:37)
[2017-01-13 18:51] LABS: HEMATOCRIT 25.8 % (37.0-47.0); HEMOGLOBIN 9.1 g/dl (12.0-16.0)
[2017-01-13] MEDS ORDERED: POTASSIUM CHLORIDE 30 MEQ in DEXTROSE 5% 250 ML IVPB PRN (19:00)
[2017-01-13 20:41] VITALS: BP 140/65; RESP 19
[2017-01-13] MEDS: CIPROFLOXACIN 400MG/D5W 200 ML IVPB SCH (20:46)
[2017-01-13] MEDS: SODIUM BICARBONATE (IV ADD) 100 MEQ in DEXTROSE 5% 1,000 ML IV SCH (20:46)
[2017-01-13] MEDS: ATORVASTATIN 40 MG TAB PO SCH (21:00)
[2017-01-13] MEDS: ALLOPURINOL 100 MG TAB PO SCH (21:00)
[2017-01-13] MEDS ORDERED: LACTULOSE 30ML CUP PO SCH (21:00)
[2017-01-13] MEDS: FAMOTIDINE 20 MG TAB PO SCH (21:00)
[2017-01-13] MEDS: LACTULOSE 30ML CUP PO SCH (21:00)
[2017-01-14] VITALS (14 sets, daily range): BP systolic 108–157; BP diastolic 63–88; PULSE 68–78; RESP 18–20
--- NOTE | 2017-01-14 01:19 | PN ---
DATE: 01/13/2017 CHIEF COMPLAINT: At this time, she has no vomiting, but initially I thought because of the vomiting upper endoscopy was performed. Right now, she is tolerating a diet. Endoscopy showed evidence of gastritis and esophagitis. Pathology showed no evidence of H pylori infection. No evidence of Shalonda in the esophagus. IMPRESSION: Vomiting, probably secondary to gastroparesis. PLAN: At this time, continue proton pump inhibitor therapy. Recommend Reglan 10 mg half an hour before each meal as needed. Dictated By: Brennen Hook MD /lucas/alysha /Document#: [id number]
--- NOTE | 2017-01-14 02:25 | RADRPT ---
PROCEDURE: CT Abdomen and pelvis without contrast. CLINICAL INDICATION: Abdominal pain. TECHNIQUE: CT scan of the abdomen and pelvis was performed on a multi-detector high-resolution CT scanner. Contiguous axial images were obtained from the lung bases to the ischial tuberosities wit hout intravenous contrast. Coronal and sagittal reformatted images were also obtained. Images were reviewed on the PACS workstation. One or more of the following dose reduction techniques were used: - Automated exposure control. - Adjustment of the mA and/or kV according to patient size. - Use of iterative reconstruction technique. Exam CTD/vol = 6.14 mGy. Total exam DLP = 302.42 mGy-cm. COMPARISON: None. FINDINGS: Evaluation of the lung bases demonstrates mild bibasilar atelectasis. Abdomen: The liver is normal in size. There is no focal mass or dilatation of the biliary tree. T he patient is status post cholecystectomy. The spleen is normal in size with small calcifications c ompatible with old granulomatous disease. There is thickening of bilateral adrenal glands. The jimenez creas is within normal limits. The left kidney is atrophic. The right kidney is normal in size. T here is no contour deforming renal mass identified. There is no radiopaque renal or ureteral calcul us identified. There is bilateral mild perinephric stranding. There is no hydronephrosis or hydrour eter. There is no retroperitoneal adenopathy. The abdominal aorta is diffusely ectatic with an inf rarenal abdominal aortic aneurysm measuring 3.0 x 2.8 cm in maximal axial dimensions. There are exte nsive scattered atherosclerotic calcifications. Oral contrast reaches the rectum. There is no bowel obstruction or free air. A normal appendix is identified. There is descending and sigmoid diverticulosis without evidence of diverticulitis. The re is no ascites. Pelvis: The bladder is unremarkable. There is a left uterine fibroid measuring 2.7 x 2.9 cm. Ther e is no significant pelvic adenopathy or free fluid. Evaluation of the osseous structures demonstrates no suspicious lytic or blastic lesion. There are d egenerative changes of the spine. IMPRESSION: Descending and sigmoid diverticulosis without evidence of diverticulitis. Diffuse ectatic aorta with infrarenal abdominal aortic aneurysm measuring up to 3.0 cm. Status post cholecystectomy. Thickening of bilateral adrenal glands. Atrophic left kidney. Vascular calcifications reflective of atherosclerosis. Uterine fibroid. Degenerative changes of the spine. Otherwise no acute abnormality identified within the abdomen and pelvis. .Edgar Norton MD, MD Date Time Electronically viewed and signed by .Edgar Norton MD, MD on 01/14/2017 02:24 .T/
[2017-01-14] MEDS: LACTULOSE 30ML CUP PO SCH ×7 (02:47→17:35)
[2017-01-14] MEDS: metroNIDAZOLE 500 MG/NS (PMX) 100 ML IVPB SCH ×3 (05:44→21:52)
[2017-01-14] MEDS: SODIUM BICARBONATE (IV ADD) 100 MEQ in DEXTROSE 5% 1,000 ML IV SCH ×2 (06:02→18:03)
[2017-01-14 07:41] LABS: WHITE BLOOD COUNT 22.5 10^3/ul (4.8-10.8)
[2017-01-14 07:42] LABS: BASOPHIL # 0.1 10^3/ul (0.0-0.1); BASOPHILS % 0.2 % (0.0-2.0); EOSINOPHILS % 0.1 % (0.0-7.0); HEMOGLOBIN 10.8 g/dl (12.0-16.0); LYMPHOCYTES # 2.1 10^3/ul (0.8-2.9); LYMPHOCYTES % 9.3 % (15.0-51.0); MEAN CORPUSCULAR HEMOGLOBIN 32.4 pg (29.0-33.0); MEAN CORPUSCULAR VOLUME 90.1 fl (82.0-101.0); MEAN PLATELET VOLUME 9.2 fl (7.4-10.4); MONOCYTE # 1.1 10^3/ul (0.3-0.9); MONOCYTES % 4.7 % (0.0-11.0); NEUTROPHILS % 81.2 % (39.0-77.0); PLATELET COUNT 113 10^3/UL (140-415); RED BLOOD COUNT 3.33 10^6/ul (4.20-5.40); RED CELL DISTRIBUTION WIDTH 13.7 % (11.5-14.5)
[2017-01-14 08:00] LABS: CALCIUM 8.3 mg/dl (8.4-10.2); CREATININE 3.92 mg/dl (0.44-1.00)
[2017-01-14] MEDS: ALLOPURINOL 100 MG TAB PO SCH ×2 (09:00→20:25)
[2017-01-14] MEDS: ESCITALOPRAM 10 MG TAB PO SCH (09:00)
--- NOTE | 2017-01-14 10:55 | PN ---
Date/Time of Note Date/Time of Note DATE: 01/14/17 TIME: 10:50 Assessment/Plan VTE Prophylaxis VTE Prophylaxis Intervention: SCD's Lines/Catheters IV [facility]from [facility]): Peripheral IV Central line still needed: No Urinary Cath still in place: No Assessment/Plan Assessment/Plan 1. Acute kidney injury: Improved with IVF today. She has prerenal azotemia, and chronic medical renal disease, appreciate recommendations from Dr. Art Gil, continue IV fluids for now (rate increased to 125 cc/hr), Patient having subacute diarrhea, diarrhea workup ordered. Strict I's and O Renal diet Repeat BMP in a.m. Colonoscopy today at 12:30 pm. 2. Subacute diarrhea for the past 3 weeks at least, patient likely prerenal azotemia from ongoing diarrhea. Apparently she already had authorization to have a colonoscopy by Dr. Hook Check stool studies negative (c. diff) Dr. Keen will perform colonoscopy today at 12:[address] scan of the abdomen and pelvis with oral contrast did not reveal possible source of anemia; she does have diverticulosis without other findings. 3. Anemia, symptomatic, severe, acute on chronic likely. Her hgb increased to 10.7 after two additional units of PRBCs. No signs of acute bleeding, fecal occult blood positive. Check CBC in a.m., additional transfusion as needed 4. Hypertension: Resume home medications and hold if needed 5. Anxiety/major depressive disorder: stable, worse after the of her recently. Continue home medications 6. Hyperlipidemia: Continue statin 7. Thrombocytopenia: monitor CBC; d/c all heparin flushes. 8. Aortic aneurysm: stable at 3 cm; continue good BP control and beta narciso. Prophylaxis: Pepcid for GI prophylaxis, SCDs to lower extremity for DVT prophylaxis Disposition: IV fluids, GI workup and evaluation, nephrology following. Subjective 24 Hr Interval Summary Free Text/Dictation Tired after bowel prep last night. Otherwise no complaints. Exam/Review of Systems Vital Signs Vitals Vital Signs Date Time Temp Pulse Resp B/P Pulse Ox O2 Delivery O2 Flow Rate FiO2 01/14/17 08:16 98.8 63 19 134/64 97 01/14/17 06:30 Room Air Intake and Output 01/13/17 01/13/17 01/14/17 15:00 23:00 07:00 Intake Total 1070 ml 200 ml Balance 1070 ml 200 ml Exam Constitutional: alert, oriented Psych: no complaints Head: normocephalic Eyes: nl conjunctiva ENMT: nl external ears & nose Neck: supple Respiratory: clear to auscultation Cardiovascular: regular rate and rhythm Gastrointestinal: soft Extremities: normal pulses Results Result Diagram: 01/14/17 0708 01/14/17 0708 Results 24 hrs Laboratory Tests Test 01/13/17 18:24 01/14/17 07:08 Hemoglobin 9.1 L 10.8 L Hematocrit 25.8 L 30.0 L White Blood Count 22.5 H Red Blood Count 3.33 #L Mean Corpuscular Volume 90.1 Mean Corpuscular Hemoglobin 32.4 Mean Corpuscular Hemoglobin Concent 36.0 Red Cell Distribution Width 13.7 Platelet Count 113 #L Mean Platelet Volume 9.2 Neutrophils % 81.2 H Lymphocytes % 9.3 L Monocytes % 4.7 Eosinophils % 0.1 Basophils % 0.2 Nucleated Red Blood Cells % 0.0 Neutrophils # (Manual) 18 H Lymphocytes # 2.1 Monocytes # 1.1 H Eosinophils # 0.0 Basophils # 0.1 Nucleated Red Blood Cells # 0.0 Sodium Level 135 Potassium Level 4.0 Chloride Level 102 Carbon Dioxide Level 17 L Anion Gap 20 H Blood Urea Nitrogen 92 H Creatinine 3.92 H Glucose Level 92 Calcium Level 8.3 L Medications Medications Current Medications Ondansetron HCl (Zofran Inj) 4 mg Q6H PRN IV NAUSEA AND/OR VOMITING; Start at 16:00 Acetaminophen (Tylenol Tab) 650 mg Q6H PRN PO PAIN LEVEL 1-3 OR FEVER; Start at 16:00 Acetaminophen/ Hydrocodone Bitart ([place] (5/325)) 1 tab Q6H PRN PO MODERATE PAIN LEVEL 4-6; Start 01/12/17 at 16:00 Hydromorphone HCl (Dilaudid) 0.5 mg Q4H PRN IV SEVERE PAIN LEVEL 7-10; Start at 16:00 Docusate Sodium (Colace) 100 mg Q12H PRN PO CONSTIPATION; Start 01/12/17 at 16: 00 Magnesium Hydroxide (Milk Of Mag) 30 ml DAILY PRN PO CONSTIPATION; Start at 16:00 Bisacodyl (Dulcolax Supp) 10 mg DAILY PRN [place] CONSTIPATION; Start 01/12/17 at 16 :00 Famotidine (Pepcid) 20 mg HS PO Last administered on 01/12/17 21:16; Admin Dose 20 MG; Start 01/12/17 at 21:00 Atorvastatin Calcium (Lipitor) 40 mg HS PO Last administered on 01/12/17 21:16 ; Admin Dose 40 MG; Start 01/12/17 at 21:00 Clonazepam (Klonopin) 1 mg Q8H PRN PO ANXIETY; Start 01/12/17 at 16:00 Escitalopram Oxalate (Lexapro) 10 mg DAILY PO Last administered on 01/13/17 09 :15; Admin Dose 10 MG; Start 01/13/17 at 09:00 Trazodone HCl (Desyrel) 100 mg HS PRN PO INSOMNIA Last administered on 21:16; Admin Dose 100 MG; Start 01/12/17 at 16:00 Allopurinol 100 mg 100 mg BID PO ; Start 01/13/17 at 21:00 Metronidazole 100 ml @ 100 mls/hr Q8 IVPB Last administered on 01/14/17 05:44 ; Admin Dose 100 MLS/HR; Start 01/13/17 at 18:00 Ciprofloxacin/ Dextrose (Cipro Ivpb) 200 ml @ 200 mls/hr Q24H IVPB Last administered on 01/13/17 20:46; Admin Dose 200 MLS/HR; Start 01/13/17 at 20:00 Lactulose 20 gm 20 gm Q3 PO Last administered on 01/14/17 05:44; Admin Dose 20 GM; Start 01/13/17 at 21:00 Potassium Chloride 30 meq/ Dextrose 265 ml @ 88.333 mls/ hr ONCE PRN IVPB IF K + <3.6; Start 01/13/17 at 19:00 Sodium Bicarbonate/ Dextrose (Na Bicarb/D5W) 1,100 ml @ 100 mls/hr Q11H IV Last administered on 01/13/17 20:46; Admin Dose 100 MLS/HR; Start 01/13/17 at 20:00 SHAYAN BECKWITH MD Jan 14, 2017 10:55
[2017-01-14] MEDS ORDERED: PROPOFOL 60 ML ONE (12:35)
--- NOTE | 2017-01-14 13:46 | OPPN ---
Date/Time of Note Date/Time of Note DATE: 01/14/17 TIME: 13:40 Proc Note GI Procedure date: Jan 14, 2017 Pre-procedure Diagnosis Severe anemia and severe diarrhea Post-procedure Diagnosis 2 duodenal ulcers with stigmata of bleed Erosive gastric Hiatal hernia with mild reflux esophagitis Operation Performed EGD and hemoclipping Anesthesia Type: BUD Anesthesiologist: NICOLLE BAIRD Estimated blood loss: none Transfusion Required: no Specimens Gastric biopsies Grafts/Implants None Tubes/Drains None Pt Condition post procedure: stable Disposition: PACU Indications Severe anemia and severe diarrhea Operative\Procedure Findings After the informed written consent is obtained patient was ostial in the left lateral side Intravenous anesthesia was given by anesthesiology Dr. Baird. The patient become somnolent Olympus video upper endoscope was introduced into the oropharynx then into the esophagus. Esophagus showed mild reflux esophagitis small hiatal hernia was noted. Scope with the stem was advanced into the stomach stomach showed evidence of multiple erosions in the antrum and diffuse mild erythema. Biopsies were done from the antrum the lesser curvature in the fundus to rule out H. pylori infection. At this time scope was advanced into the duodenum. There are 2 ulcers noted in the duodenal bulb and postbulbar area one is about 5 mm in diameter no bleeding noted. Another ulcer next to that showed evidence of a 1 cm in diameter with a clot in the middle of the ulcer. As could be suggestive of the source of the bleeding. The ports beyond this also showed evidence of scalloping appearance appearance Multiple biopsies were obtained to rule out celiac sprue. At this time I applied 3 hemoclips to approximate the margins of the ulcer to facilitate easy healing and to prevent further bleeding Time biopsies were done from the antrum the lesser curvature in the fundus to rule out H. pylori infection. Potassium was withdrawn and the procedure was terminated. Plan recommend continue proton pump inhibitor therapy recommend wait for the pathology report Of dictation please send copy to my office and also to Simona Smith dr, NAGARAJ M MD Jan 14, 2017 13:45
--- NOTE | 2017-01-14 13:50 | OPPN ---
Date/Time of Note Date/Time of Note DATE: 01/14/17 TIME: 13:46 Proc Note GI Procedure date: Jan 14, 2017 Pre-procedure Diagnosis Severe diarrhea abdominal pain and anemia rule out colitis colorectal neoplasm Post-procedure Diagnosis Severe diverticulosis of the descending colon Localized erythema in the sigmoid colon Biopsies were obtained to rule out microscopic colitis Operation Performed Colonoscopy and biopsy Anesthesia Type: BUD Anesthesiologist: NICOLLE BOSE Estimated blood loss: none Transfusion Required: no Pt Condition post procedure: stable Disposition: PACU Indications Severe diarrhea and anemia rule out inflammatory bowel disease diverticulitis colorectal neoplasm Operative\Procedure Findings Diverticulosis and the localized erythema in the sigmoid colon After informed written consent is obtained patient was put on the left lateral side intravenous anesthesia was given by anesthesia was Dr. Bose. At this time scope was advanced through the rectum into the S of the colon,. Colace erythema noted for about 5 cm in length in the sigmoid colon area No biopsies were obtained from this part dense of diverticulosis noted in this area diverticulitis cannot be excluded with this and was advanced to the cecum significant liquid stool was noted which was aspirated from the colon Random biopsies were obtained from the colon to rule out microscopic colitis Scope with this and was withdrawn no additional abnormalities detected and the procedure was terminated And recommend wait for the pathology Any antibiotic therapy cc dr lema cc dr domínguez Please send copy to my office and also to catrachita Smith NAGARAJ M MD Jan 14, 2017 13:50
[2017-01-14] MEDS ORDERED: LACTULOSE 30ML CUP PO PRN (18:00)
--- NOTE | 2017-01-14 18:15 | CONS ---
Date/Time of Note Date/Time of Note DATE: 01/14/17 TIME: 18:06 Assessment/Plan Assessment/Plan Additional Assessment/Plan 1. acute kidney injury 2/2 severe prerenal azotemia, no previous Cr available for comparison - increase NS at 125 cc/hr - Cr improving- 3.92 today -Renal US - Bilateral kidneys are atrophic and echogenic, more on the left than the right, likely due to medical renal disease. Correlation with BUN and creatinine levels is recommended. - No hydronephrosis bilaterally. - The bladder is grossly unremarkable. -CK total- 120 -Uric acid- 10.5 -Iron panel - % Saturation 46 2. rule out CKD 3. HTN 4. hyperlipidemia 5. anxiety, depression 6. Elevated uric acid -Uric acid- 10.5 - cont Allopurinol 100m g po BID, am uric acid level 7. Stool for occult blood- positive. SP EGD/ colonoscopy 8. Anemia- SP 2 PRBC transfusion yesterday- H/H IMPROVED. 9. Acute Diarrhea- CT scan of the abdomen and pelvis with oral contrast to evaluate for ischemic colitis per PMD -Descending and sigmoid diverticulosis without evidence of diverticulitis. -Diffuse ectatic aorta with infrarenal abdominal aortic aneurysm measuring up to 3.0 cm. -Thickening of bilateral adrenal glands. -Atrophic left kidney. -Vascular calcifications reflective of atherosclerosis. -Uterine fibroid. -Degenerative changes of the spine. 10. Hyperphosphatemia- 5.2. cont to monitor plan: - cont NS at 125 cc/hr - PRBC as needed - will follow up Dw Dr brandie Nuñez/staff Consultation Date/Type/Reason Admit Date/Time Jan 12, 2017 at 14:52 Initial Consult Date 01/12/17 Type of Consultation: NEPHROLOGY Referring Provider: ALEXANDRA ELIZONDO 24 HR Interval Summary Constitutional: requiring IVF Detailed Summary Respiratory: no complaints Cardiovascular: no complaints Gastrointestinal: no complaints Genitourinary: no complaints Musculoskeletal: no complaints Exam/Review of Systems Vital Signs Vitals Vital Signs Date Time Temp Pulse Resp B/P Pulse Ox O2 Delivery O2 Flow Rate FiO2 01/14/17 13:56 68 18 155/67 95 Room Air 01/14/17 13:46 97.9 2.0 Intake and Output 01/13/17 01/13/17 01/14/17 15:00 23:00 07:00 Intake Total 1070 ml 200 ml Balance 1070 ml 200 ml Exam Constitutional: alert, oriented, well developed Respiratory: clear to auscultation, normal air movement Cardiovascular: nl pulses, regular rate and rhythm Gastrointestinal: non-tender, soft Musculoskeletal: nl extremities to inspection Results Result Diagram: 01/14/17 0708 01/14/17 0708 Results 24 hrs Laboratory Tests Test 01/13/17 18:24 01/14/17 07:08 Hemoglobin 9.1 L 10.8 L Hematocrit 25.8 L 30.0 L White Blood Count 22.5 H Red Blood Count 3.33 #L Mean Corpuscular Volume 90.1 Mean Corpuscular Hemoglobin 32.4 Mean Corpuscular Hemoglobin Concent 36.0 Red Cell Distribution Width 13.7 Platelet Count 113 #L Mean Platelet Volume 9.2 Neutrophils % 81.2 H Lymphocytes % 9.3 L Monocytes % 4.7 Eosinophils % 0.1 Basophils % 0.2 Nucleated Red Blood Cells % 0.0 Neutrophils # (Manual) 18 H Lymphocytes # 2.1 Monocytes # 1.1 H Eosinophils # 0.0 Basophils # 0.1 Nucleated Red Blood Cells # 0.0 Sodium Level 135 Potassium Level 4.0 Chloride Level 102 Carbon Dioxide Level 17 L Anion Gap 20 H Blood Urea Nitrogen 92 H Creatinine 3.92 H Glucose Level 92 Calcium Level 8.3 L Medications Medications Current Medications Ondansetron HCl (Zofran Inj) 4 mg Q6H PRN IV NAUSEA AND/OR VOMITING; Start at 16:00 Acetaminophen (Tylenol Tab) 650 mg Q6H PRN PO PAIN LEVEL 1-3 OR FEVER; Start at 16:00 Acetaminophen/ Hydrocodone Bitart ([place] (5/325)) 1 tab Q6H PRN PO MODERATE PAIN LEVEL 4-6; Start 01/12/17 at 16:00 Hydromorphone HCl (Dilaudid) 0.5 mg Q4H PRN IV SEVERE PAIN LEVEL 7-10; Start at 16:00 Docusate Sodium (Colace) 100 mg Q12H PRN PO CONSTIPATION; Start 01/12/17 at 16: 00 Magnesium Hydroxide (Milk Of Mag) 30 ml DAILY PRN PO CONSTIPATION; Start at 16:00 Bisacodyl (Dulcolax Supp) 10 mg DAILY PRN [place] CONSTIPATION; Start 01/12/17 at 16 :00 Famotidine (Pepcid) 20 mg HS PO Last administered on 01/12/17 21:16; Admin Dose 20 MG; Start 01/12/17 at 21:00 Atorvastatin Calcium (Lipitor) 40 mg HS PO Last administered on 01/12/17 21:16 ; Admin Dose 40 MG; Start 01/12/17 at 21:00 Clonazepam (Klonopin) 1 mg Q8H PRN PO ANXIETY; Start 01/12/17 at 16:00 Escitalopram Oxalate (Lexapro) 10 mg DAILY PO Last administered on 01/13/17 09 :15; Admin Dose 10 MG; Start 01/13/17 at 09:00 Trazodone HCl (Desyrel) 100 mg HS PRN PO INSOMNIA Last administered on 21:16; Admin Dose 100 MG; Start 01/12/17 at 16:00 Allopurinol 100 mg 100 mg BID PO ; Start 01/13/17 at 21:00 Metronidazole 100 ml @ 100 mls/hr Q8 IVPB Last administered on 01/14/17 15:24 ; Admin Dose 100 MLS/HR; Start 01/13/17 at 18:00 Ciprofloxacin/ Dextrose 200 ml @ 200 mls/hr Q24H IVPB Last administered on 20:46; Admin Dose 200 MLS/HR; Start 01/13/17 at 20:00 Potassium Chloride 30 meq/ Dextrose 265 ml @ 88.333 mls/ hr ONCE PRN IVPB IF K + <3.6; Start 01/13/17 at 19:00 Sodium Bicarbonate/ Dextrose (Na Bicarb/D5W) 1,100 ml @ 100 mls/hr Q11H IV Last administered on 01/14/17 18:03; Admin Dose 100 MLS/HR; Start 01/13/17 at 20:00 Lactulose (Enulose) 20 gm Q3 PRN PO constipation; Start 01/14/17 at 18:00 JOSE ARGUETA Jan 14, 2017 18:14
[2017-01-14] MEDS: CIPROFLOXACIN 400MG/D5W 200 ML IVPB SCH (19:56)
[2017-01-14] MEDS: ATORVASTATIN 40 MG TAB PO SCH (20:25)
[2017-01-14] MEDS: FAMOTIDINE 20 MG TAB PO SCH (20:25)
[2017-01-14] MEDS: traZODone 100 MG TAB PO PRN (20:27)
[2017-01-15 02:23] VITALS: BP 135/63; RESP 18
[2017-01-15] MEDS: SODIUM BICARBONATE (IV ADD) 100 MEQ in DEXTROSE 5% 1,000 ML IV SCH ×2 (05:00→10:17)
[2017-01-15 05:31] LABS: BASOPHILS % 0.2 % (0.0-2.0); EOSINOPHILS # 0.1 10^3/ul (0.0-0.5); EOSINOPHILS % 0.8 % (0.0-7.0); HEMATOCRIT 28.6 % (37.0-47.0); HEMOGLOBIN 10.4 g/dl (12.0-16.0); LYMPHOCYTES # 2.8 10^3/ul (0.8-2.9); LYMPHOCYTES % 16.8 % (15.0-51.0); MEAN CORPUSCULAR HEMOGLOBIN 32.3 pg (29.0-33.0); MEAN CORPUSCULAR HGB CONC 36.4 g/dl (32.0-37.0); MEAN CORPUSCULAR VOLUME 88.8 fl (82.0-101.0); MEAN PLATELET VOLUME 9.3 fl (7.4-10.4); NEUTROPHILS % 72.2 % (39.0-77.0); NUCLEATED RED BLOOD CELLS% 0.1 /100WBC (0.0-0.0); PLATELET COUNT 124 10^3/UL (140-415); RED BLOOD COUNT 3.22 10^6/ul (4.20-5.40); RED CELL DISTRIBUTION WIDTH 13.7 % (11.5-14.5); WHITE BLOOD COUNT 16.7 10^3/ul (4.8-10.8)
[2017-01-15] MEDS: metroNIDAZOLE 500 MG/NS (PMX) 100 ML IVPB SCH ×3 (05:46→22:24)
[2017-01-15 07:05] LABS: ALBUMIN 2.5 g/dl (3.3-4.9); CALCIUM 7.5 mg/dl (8.4-10.2); CREATININE 3.84 mg/dl (0.44-1.00); PHOSPHORUS 4.1 mg/dl (2.5-4.9)
[2017-01-15 07:26] VITALS: BP 156/68; RESP 20
[2017-01-15] MEDS: ESCITALOPRAM 10 MG TAB PO SCH (08:28)
[2017-01-15] MEDS: ALLOPURINOL 100 MG TAB PO SCH ×2 (08:28→20:24)
--- NOTE | 2017-01-15 12:04 | CONS ---
Date/Time of Note Date/Time of Note DATE: 01/15/17 TIME: 12:02 Assessment/Plan Assessment/Plan Chief Complaint/Hosp Course Patient is admitted to the hospital because of severe anemia Social has got history of severe diarrhea Hemoglobin was found to be around 7 g And she developed renal failure Ulcers got white count elevation on questioning she has been having diarrhea for the past several weeks Some history of lactose intolerance is also noted history of antibiotic ingestion no history of abdominal pain Loss 20 pounds of weight she has no appetite no recent foreign travel Problems: Additional Assessment/Plan stable gi bleeding cont ppi Consultation Date/Type/Reason Admit Date/Time Jan 12, 2017 at 14:52 Initial Consult Date having brown stool 01/12/17 Type of Consultation: NEPHROLOGY Referring Provider: ALEXANDRA ELIZONDO 24 HR Interval Summary Free Text/Dictation appears well Hb 10 duod ulcers s/p hemoclipping diverticulosis poss mild diverticulitis Exam/Review of Systems Vital Signs Vitals Vital Signs Date Time Temp Pulse Resp B/P Pulse Ox O2 Delivery O2 Flow Rate FiO2 01/15/17 07:26 97.5 65 20 156/68 96 01/14/17 13:56 Room Air 01/14/17 13:46 2.0 Intake and Output 01/14/17 01/14/17 01/15/17 15:00 23:00 07:00 Intake Total 30 ml 1520 ml 1100 ml Output Total 750 ml 600 ml Balance 30 ml 770 ml 500 ml Results Result Diagram: 01/15/17 0415 01/15/17 0538 Results 24 hrs Laboratory Tests Test 01/15/17 04:15 01/15/17 04:45 01/15/17 05:38 01/15/17 06:49 White Blood Count 16.7 #H Red Blood Count 3.22 L Hemoglobin 10.4 L Hematocrit 28.6 L Mean Corpuscular Volume 88.8 Mean Corpuscular Hemoglobin 32.3 Mean Corpuscular Hemoglobin Concent 36.4 Red Cell Distribution Width 13.7 Platelet Count 124 L Mean Platelet Volume 9.3 Neutrophils % 72.2 Lymphocytes % 16.8 Monocytes % 6.0 Eosinophils % 0.8 Basophils % 0.2 Nucleated Red Blood Cells % 0.1 H Neutrophils # (Manual) 12 H Lymphocytes # 2.8 Monocytes # 1.0 H Eosinophils # 0.1 Basophils # 0.0 Nucleated Red Blood Cells # 0.0 Uric Acid 9.1 H Sodium Level 130 L Potassium Level 3.0 L Chloride Level 97 Carbon Dioxide Level 21 Anion Gap 15 Blood Urea Nitrogen 73 H Creatinine 3.84 H Glucose Level 82 Calcium Level 7.5 L Phosphorus Level 4.1 Albumin 2.5 L Lab Scanned Report BLOOD TRANSFUSION Medications Medications Current Medications Ondansetron HCl (Zofran Inj) 4 mg Q6H PRN IV NAUSEA AND/OR VOMITING; Start at 16:00 Acetaminophen (Tylenol Tab) 650 mg Q6H PRN PO PAIN LEVEL 1-3 OR FEVER; Start at 16:00 Acetaminophen/ Hydrocodone Bitart ([place] (5/325)) 1 tab Q6H PRN PO MODERATE PAIN LEVEL 4-6; Start 01/12/17 at 16:00 Hydromorphone HCl (Dilaudid) 0.5 mg Q4H PRN IV SEVERE PAIN LEVEL 7-10; Start at 16:00 Docusate Sodium (Colace) 100 mg Q12H PRN PO CONSTIPATION; Start 01/12/17 at 16: 00 Magnesium Hydroxide (Milk Of Mag) 30 ml DAILY PRN PO CONSTIPATION; Start at 16:00 Bisacodyl (Dulcolax Supp) 10 mg DAILY PRN [place] CONSTIPATION; Start 01/12/17 at 16 :00 Famotidine (Pepcid) 20 mg HS PO Last administered on 01/14/17 20:25; Admin Dose 20 MG; Start 01/12/17 at 21:00 Atorvastatin Calcium (Lipitor) 40 mg HS PO Last administered on 01/14/17 20:25 ; Admin Dose 40 MG; Start 01/12/17 at 21:00 Clonazepam (Klonopin) 1 mg Q8H PRN PO ANXIETY; Start 01/12/17 at 16:00 Escitalopram Oxalate (Lexapro) 10 mg DAILY PO Last administered on 01/15/17 08 :28; Admin Dose 10 MG; Start 01/13/17 at 09:00 Trazodone HCl (Desyrel) 100 mg HS PRN PO INSOMNIA Last administered on 20:27; Admin Dose 100 MG; Start 01/12/17 at 16:00 Allopurinol 100 mg 100 mg BID PO Last administered on 01/15/17 08:28; Admin Dose 100 MG; Start 01/13/17 at 21:00 Metronidazole 100 ml @ 100 mls/hr Q8 IVPB Last administered on 01/15/17 05:46 ; Admin Dose 100 MLS/HR; Start 01/13/17 at 18:00 Ciprofloxacin/ Dextrose 200 ml @ 200 mls/hr Q24H IVPB Last administered on 19:56; Admin Dose 200 MLS/HR; Start 01/13/17 at 20:00 Potassium Chloride/Dextrose (KCl/D5W) 265 ml @ 88.333 mls/ hr ONCE PRN IVPB IF K+ <3.6; Start 01/13/17 at 19:00 Lactulose (Enulose) 20 gm Q3 PRN PO constipation; Start 01/14/17 at 18:00 Citric Acid/ Sodium Citrate 30 ml 30 ml TID PO ; Start 01/15/17 at 13:00 Potassium Chloride/Dextrose/ Sod Cl (D5-1/2ns + KCl 10 Meq) 1,000 ml @ 70 mls/ hr [id number] IV ; Start 01/15/17 at 12:00 FARAZ COLLADO MD Jan 15, 2017 12:03
--- NOTE | 2017-01-15 12:08 | PN ---
Date/Time of Note Date/Time of Note DATE: 01/15/17 TIME: 12:04 Assessment/Plan VTE Prophylaxis VTE Prophylaxis Intervention: SCD's Lines/Catheters IV C[facility] Type (from [facility] Peripheral IV Urinary Cath still in place: No Assessment/Plan Assessment/Plan 76 yo female with: 1. Acute kidney injury: Improved a little bit with IVF today. She has prerenal azotemia, and chronic medical renal disease, appreciate recommendations from Dr. Atr Gil, continue bicarb gtt, patient having subacute diarrhea, diarrhea workup ordered. Strict I's and O's. Renal diet F/u BMP in a.m. S/p EGD and Colonoscopy yesterday. 2. Subacute diarrhea for the past 3 weeks at least, patient likely prerenal azotemia from ongoing diarrhea. Leukocytosis, CT scan of the abdomen and pelvis with oral contrast did not reveal possible source of anemia; she does have diverticulosis without other findings. S/p EGD/[place] yesterday with ? diverticulitis On Cipro and Flagyl, improving Leukocytosis. 3. Anemia, symptomatic, severe, acute on chronic likely. S/p EGD with finding of Duodenal Ulcer, s/p hemo-clipping, s/p total 4 units pRBCs, Hb 11. 4. Hypertension: Resume home medications and hold if needed 5. Anxiety/major depressive disorder: stable, worse after the of her recently. Continue home medications 6. Hyperlipidemia: Continue statin 7. Thrombocytopenia: monitor CBC; d/c all heparin flushes. 8. Aortic aneurysm: stable at 3 cm; continue good BP control and beta narciso. Prophylaxis: Pepcid for GI prophylaxis, SCDs to lower extremity for DVT prophylaxis Disposition: IV fluids/bicarb gtt, nephrology and GI following. Discharge planning in 24-48 hours hopefully. Subjective 24 Hr Interval Summary Free Text/Dictation Patient doing well today and Hb stable and WBC coming down Appreciate assistance from Dr Hook, s/p EGD with findings of bleeding duodenal ulcer, s/p hemoclipping and colonoscopy with finding of ? diverticulitis On abx with WBC trending down Exam/Review of Systems Vital Signs Vitals Vital Signs Date Time Temp Pulse Resp B/P Pulse Ox O2 Delivery O2 Flow Rate FiO2 01/15/17 07:26 97.5 65 20 156/68 96 01/14/17 13:56 Room Air 01/14/17 13:46 2.0 Intake and Output 01/14/17 01/14/17 01/15/17 15:00 23:00 07:00 Intake Total 30 ml 1520 ml 1100 ml Output Total 750 ml 600 ml Balance 30 ml 770 ml 500 ml Exam Constitutional: alert, oriented, well developed Cardiovascular: nl pulses, regular rate and rhythm Gastrointestinal: non-tender, soft Musculoskeletal: nl extremities to inspection Extremities: normal pulses, other Neurological: [employer] II-XII intact, nl mental status, nl speech, nl strength Results Result Diagram: 01/15/17 0415 01/15/17 0538 Results 24 hrs Laboratory Tests Test 01/15/17 04:15 01/15/17 04:45 01/15/17 05:38 01/15/17 06:49 White Blood Count 16.7 #H Red Blood Count 3.22 L Hemoglobin 10.4 L Hematocrit 28.6 L Mean Corpuscular Volume 88.8 Mean Corpuscular Hemoglobin 32.3 Mean Corpuscular Hemoglobin Concent 36.4 Red Cell Distribution Width 13.7 Platelet Count 124 L Mean Platelet Volume 9.3 Neutrophils % 72.2 Lymphocytes % 16.8 Monocytes % 6.0 Eosinophils % 0.8 Basophils % 0.2 Nucleated Red Blood Cells % 0.1 H Neutrophils # (Manual) 12 H Lymphocytes # 2.8 Monocytes # 1.0 H Eosinophils # 0.1 Basophils # 0.0 Nucleated Red Blood Cells # 0.0 Uric Acid 9.1 H Sodium Level 130 L Potassium Level 3.0 L Chloride Level 97 Carbon Dioxide Level 21 Anion Gap 15 Blood Urea Nitrogen 73 H Creatinine 3.84 H Glucose Level 82 Calcium Level 7.5 L Phosphorus Level 4.1 Albumin 2.5 L Lab Scanned Report BLOOD TRANSFUSION Medications Medications Current Medications Ondansetron HCl (Zofran Inj) 4 mg Q6H PRN IV NAUSEA AND/OR VOMITING; Start at 16:00 Acetaminophen (Tylenol Tab) 650 mg Q6H PRN PO PAIN LEVEL 1-3 OR FEVER; Start at 16:00 Acetaminophen/ Hydrocodone Bitart ([place] (5/325)) 1 tab Q6H PRN PO MODERATE PAIN LEVEL 4-6; Start 01/12/17 at 16:00 Hydromorphone HCl (Dilaudid) 0.5 mg Q4H PRN IV SEVERE PAIN LEVEL 7-10; Start at 16:00 Docusate Sodium (Colace) 100 mg Q12H PRN PO CONSTIPATION; Start 01/12/17 at 16: 00 Magnesium Hydroxide (Milk Of Mag) 30 ml DAILY PRN PO CONSTIPATION; Start at 16:00 Bisacodyl (Dulcolax Supp) 10 mg DAILY PRN [place] CONSTIPATION; Start 01/12/17 at 16 :00 Famotidine (Pepcid) 20 mg HS PO Last administered on 01/14/17 20:25; Admin Dose 20 MG; Start 01/12/17 at 21:00 Atorvastatin Calcium (Lipitor) 40 mg HS PO Last administered on 01/14/17 20:25 ; Admin Dose 40 MG; Start 01/12/17 at 21:00 Clonazepam (Klonopin) 1 mg Q8H PRN PO ANXIETY; Start 01/12/17 at 16:00 Escitalopram Oxalate (Lexapro) 10 mg DAILY PO Last administered on 01/15/17 08 :28; Admin Dose 10 MG; Start 01/13/17 at 09:00 Trazodone HCl (Desyrel) 100 mg HS PRN PO INSOMNIA Last administered on 20:27; Admin Dose 100 MG; Start 01/12/17 at 16:00 Allopurinol 100 mg 100 mg BID PO Last administered on 01/15/17 08:28; Admin Dose 100 MG; Start 01/13/17 at 21:00 Metronidazole 100 ml @ 100 mls/hr Q8 IVPB Last administered on 01/15/17 05:46 ; Admin Dose 100 MLS/HR; Start 01/13/17 at 18:00 Ciprofloxacin/ Dextrose 200 ml @ 200 mls/hr Q24H IVPB Last administered on 19:56; Admin Dose 200 MLS/HR; Start 01/13/17 at 20:00 Potassium Chloride/Dextrose (KCl/D5W) 265 ml @ 88.333 mls/ hr ONCE PRN IVPB IF K+ <3.6; Start 01/13/17 at 19:00 Lactulose (Enulose) 20 gm Q3 PRN PO constipation; Start 01/14/17 at 18:00 Citric Acid/ Sodium Citrate 30 ml 30 ml TID PO ; Start 01/15/17 at 13:00 Potassium Chloride/Dextrose/ Sod Cl (D5-1/2ns + KCl 10 Meq) 1,000 ml @ 70 mls/ hr [id number] IV ; Start 01/15/17 at 12:00 ALEXANDRA ELIZONDO Jan 15, 2017 12:08
[2017-01-15] MEDS: D5W-0.45 NACL + KCL 10 MEQ 1,000 ML IV SCH (12:17)
[2017-01-15 13:13] VITALS: BP 136/64; RESP 20
[2017-01-15] MEDS: CITRIC ACID/NA CITRATE 30 ML CUP PO SCH ×2 (13:57→20:24)
--- NOTE | 2017-01-15 18:08 | CONS ---
Date/Time of Note Date/Time of Note DATE: 01/15/17 TIME: 18:04 Assessment/Plan Assessment/Plan Additional Assessment/Plan 1. acute kidney injury 2/2 severe prerenal azotemia, no previous Cr available for comparison - increase NS at 125 cc/hr - Cr improving 2. pt has CKD possibly due to HTN 3. HTN 4. hyperlipidemia 5. anxiety, depression 6. Hyperuricemia- will start on Allopurinol 100m g po BID 7. Stool for occult blood- positive. SP EGD/ colonoscopy 8. Anemia- SP 2 PRBC transfusion yesterday- H/H IMPROVED. - GI following Plan: continue IVF I will stop bicarbonate drip now and switch her to D51/2NS with 10mEQ KCL at 70 cc/hr, Cr and BUn slightly better than yesterday, expecting renal function to improve but pt may establish new baseline Cr(no previous baseline Cr available to review) will follow up Consultation Date/Type/Reason Admit Date/Time Jan 12, 2017 at 14:52 Initial Consult Date 01/12/17 Type of Consultation: NEPHROLOGY Referring Provider: ALEXANDRA ELIZONDO Exam/Review of Systems Vital Signs Vitals Vital Signs Date Time Temp Pulse Resp B/P Pulse Ox O2 Delivery O2 Flow Rate FiO2 01/15/17 13:13 97.7 66 20 136/64 97 01/14/17 13:56 Room Air 01/14/17 13:46 2.0 Intake and Output 01/14/17 01/14/17 01/15/17 15:00 23:00 07:00 Intake Total 30 ml 1520 ml 1100 ml Output Total 750 ml 600 ml Balance 30 ml 770 ml 500 ml Exam Constitutional: alert, oriented, well developed Psych: no complaints Head: normocephalic Eyes: EOMI, nl conjunctiva ENMT: nl external ears & nose Neck: non-tender, supple Respiratory: clear to auscultation, diminished breath sounds, normal air movement Cardiovascular: nl pulses, regular rate and rhythm Gastrointestinal: non-tender, soft Musculoskeletal: nl extremities to inspection Neurological: [employer] II-XII intact, nl mental status, nl speech, nl strength Skin: nl turgor Lymph: nl lymph nodes Results Result Diagram: 01/15/17 0415 01/15/17 0538 Results 24 hrs Laboratory Tests Test 8/21/17 04:15 01/15/17 04:45 01/15/17 05:38 01/15/17 06:49 White Blood Count 16.7 #H Red Blood Count 3.22 L Hemoglobin 10.4 L Hematocrit 28.6 L Mean Corpuscular Volume 88.8 Mean Corpuscular Hemoglobin 32.3 Mean Corpuscular Hemoglobin Concent 36.4 Red Cell Distribution Width 13.7 Platelet Count 124 L Mean Platelet Volume 9.3 Neutrophils % 72.2 Lymphocytes % 16.8 Monocytes % 6.0 Eosinophils % 0.8 Basophils % 0.2 Nucleated Red Blood Cells % 0.1 H Neutrophils # (Manual) 12 H Lymphocytes # 2.8 Monocytes # 1.0 H Eosinophils # 0.1 Basophils # 0.0 Nucleated Red Blood Cells # 0.0 Uric Acid 9.1 H Sodium Level 130 L Potassium Level 3.0 L Chloride Level 97 Carbon Dioxide Level 21 Anion Gap 15 Blood Urea Nitrogen 73 H Creatinine 3.84 H Glucose Level 82 Calcium Level 7.5 L Phosphorus Level 4.1 Albumin 2.5 L Lab Scanned Report BLOOD TRANSFUSION Medications Medications Current Medications Ondansetron HCl (Zofran Inj) 4 mg Q6H PRN IV NAUSEA AND/OR VOMITING; Start at 16:00 Acetaminophen (Tylenol Tab) 650 mg Q6H PRN PO PAIN LEVEL 1-3 OR FEVER; Start at 16:00 Acetaminophen/ Hydrocodone Bitart ([place] (5/325)) 1 tab Q6H PRN PO MODERATE PAIN LEVEL 4-6; Start 01/12/17 at 16:00 Hydromorphone HCl (Dilaudid) 0.5 mg Q4H PRN IV SEVERE PAIN LEVEL 7-10; Start at 16:00 Docusate Sodium (Colace) 100 mg Q12H PRN PO CONSTIPATION; Start 01/12/17 at 16: 00 Magnesium Hydroxide (Milk Of Mag) 30 ml DAILY PRN PO CONSTIPATION; Start at 16:00 Bisacodyl (Dulcolax Supp) 10 mg DAILY PRN [place] CONSTIPATION; Start 01/12/17 at 16 :00 Famotidine (Pepcid) 20 mg HS PO Last administered on 01/14/17t 20:25; Admin Dose 20 MG; Start 01/12/17 at 21:00 Atorvastatin Calcium (Lipitor) 40 mg HS PO Last administered on 01/14/17 20:25 ; Admin Dose 40 MG; Start 01/12/17 at 21:00 Clonazepam (Klonopin) 1 mg Q8H PRN PO ANXIETY; Start 01/12/17 at 16:00 Escitalopram Oxalate (Lexapro) 10 mg DAILY PO Last administered on 01/15/17 08 :28; Admin Dose 10 MG; Start 01/13/17 at 09:00 Trazodone HCl (Desyrel) 100 mg HS PRN PO INSOMNIA Last administered on 20:27; Admin Dose 100 MG; Start 01/12/17 at 16:00 Allopurinol 100 mg 100 mg BID PO Last administered on 01/15/17 08:28; Admin Dose 100 MG; Start 01/13/17 at 21:00 Metronidazole 100 ml @ 100 mls/hr Q8 IVPB Last administered on 01/15/17 13:58 ; Admin Dose 100 MLS/HR; Start 01/13/17 at 18:00 Ciprofloxacin/ Dextrose 200 ml @ 200 mls/hr Q24H IVPB Last administered on 19:56; Admin Dose 200 MLS/HR; Start 01/13/17 at 20:00 Potassium Chloride/Dextrose (KCl/D5W) 265 ml @ 88.333 mls/ hr ONCE PRN IVPB IF K+ <3.6; Start 01/13/17 at 19:00 Lactulose (Enulose) 20 gm Q3 PRN PO constipation; Start 01/14/17 at 18:00 Citric Acid/ Sodium Citrate 30 ml 30 ml TID PO Last administered on 01/15/17 13:57; Admin Dose 30 ML; Start 01/15/17 at 13:00 Potassium Chloride/Dextrose/ Sod Cl (D5-1/2ns + KCl 10 Meq) 1,000 ml @ 70 mls/ hr [id number] IV Last administered on 01/15/17 12:17; Admin Dose 70 MLS/HR; Start 01/15/17 at 12:00 JESSE STEELE MD Jan 15, 2017 18:08
[2017-01-15 19:32] VITALS: BP 160/69; RESP 20
[2017-01-15] MEDS: CIPROFLOXACIN 400MG/D5W 200 ML IVPB SCH (20:24)
[2017-01-15] MEDS: FAMOTIDINE 20 MG TAB PO SCH (20:24)
[2017-01-15] MEDS: ATORVASTATIN 40 MG TAB PO SCH (20:24)
[2017-01-15] MEDS: traZODone 100 MG TAB PO PRN (20:24)
[2017-01-16 02:00] VITALS: BP 164/73; RESP 20
[2017-01-16] MEDS: D5W-0.45 NACL + KCL 10 MEQ 1,000 ML IV SCH ×4 (02:18→23:48)
[2017-01-16 04:00] VITALS: BP 158/72; PULSE 70
[2017-01-16] MEDS: metroNIDAZOLE 500 MG/NS (PMX) 100 ML IVPB SCH ×3 (05:09→21:59)
[2017-01-16 06:21] LABS: BASOPHILS % 0.1 % (0.0-2.0); EOSINOPHILS % 0.2 % (0.0-7.0); HEMATOCRIT 28.4 % (37.0-47.0); HEMOGLOBIN 9.9 g/dl (12.0-16.0); LYMPHOCYTES # 1.6 10^3/ul (0.8-2.9); LYMPHOCYTES % 8.6 % (15.0-51.0); MEAN CORPUSCULAR HEMOGLOBIN 30.9 pg (29.0-33.0); MEAN CORPUSCULAR HGB CONC 34.9 g/dl (32.0-37.0); MEAN CORPUSCULAR VOLUME 88.8 fl (82.0-101.0); MEAN PLATELET VOLUME 9.5 fl (7.4-10.4); MONOCYTE # 0.9 10^3/ul (0.3-0.9); MONOCYTES % 4.6 % (0.0-11.0); PLATELET COUNT 133 10^3/UL (140-415); RED CELL DISTRIBUTION WIDTH 13.5 % (11.5-14.5); WHITE BLOOD COUNT 18.8 10^3/ul (4.8-10.8)
[2017-01-16 06:51] VITALS: BP 168/70; PULSE 71
[2017-01-16 06:55] LABS: MAGNESIUM 1.6 mg/dl (1.7-2.5)
[2017-01-16 06:56] LABS: CALCIUM 7.5 mg/dl (8.4-10.2); CREATININE 3.49 mg/dl (0.44-1.00)
[2017-01-16 07:04] LABS: POTASSIUM 2.6 mmol/L (3.5-5.1)
[2017-01-16] MEDS ORDERED: POTASSIUM CHLORIDE (SR) 20 MEQ TAB PO STA ×2 (07:26→13:58)
[2017-01-16] MEDS ORDERED: D5-NS + KCL 40 MEQ 1,000 ML IV SCH ×2 (07:30→08:13)
[2017-01-16] MEDS ORDERED: POTASSIUM CHLORIDE 250 ML IVPB ONE (07:30)
[2017-01-16 08:17] VITALS: BP 156/69; RESP 18
[2017-01-16] MEDS: CITRIC ACID/NA CITRATE 30 ML CUP PO SCH ×3 (08:31→20:50)
[2017-01-16] MEDS: ALLOPURINOL 100 MG TAB PO SCH ×2 (08:31→20:51)
[2017-01-16] MEDS: ESCITALOPRAM 10 MG TAB PO SCH (08:31)
[2017-01-16] MEDS: LOSARTAN 50 MG TAB PO SCH ×2 (08:33→08:34)
[2017-01-16] MEDS ORDERED: MAGNESIUM SULFATE 2 GM/50 ML 50 ML IVPB ONE (09:30)
--- NOTE | 2017-01-16 11:41 | CONS ---
Date/Time of Note Date/Time of Note DATE: 01/16/17 TIME: 11:39 Assessment/Plan Assessment/Plan Additional Assessment/Plan 1. acute kidney injury 2/2 severe prerenal azotemia, no previous Cr available for comparison 2. pt has CKD possibly due to HTN 3. HTN 4. hyperlipidemia 5. anxiety, depression 6. Hyperuricemia- will start on Allopurinol 100m g po BID 7. Stool for occult blood- positive. SP EGD/ colonoscopy 8. Anemia- SP 2 PRBC transfusion yesterday- H/H IMPROVED. 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 and echogenic will follow up Consultation Date/Type/Reason Admit Date/Time Jan 12, 2017 at 14:52 Initial Consult Date 01/12/17 Type of Consultation: NEPHROLOGY Referring Provider: ALEXANDRA ELIZONDO 24 HR Interval Summary Free Text/Dictation made urine,BUM improved much better, still Cr stable, high, HCO3 drip stopped yesterday Exam/Review of Systems Vital Signs Vitals Vital Signs Date Time Temp Pulse Resp B/P Pulse Ox O2 Delivery O2 Flow Rate FiO2 01/16/17 08:17 98.3 57 18 156/69 94 01/14/17 13:56 Room Air 01/14/17 13:46 2.0 Intake and Output 01/15/17 01/15/17 01/16/17 15:00 23:00 07:00 Intake Total 500 ml 1440 ml 1340 ml Output Total 400 ml Balance 500 ml 1040 ml 1340 ml Exam Constitutional: alert, oriented, well developed Psych: no complaints Head: normocephalic Eyes: EOMI, nl conjunctiva ENMT: nl external ears & nose Neck: non-tender, supple Respiratory: clear to auscultation, diminished breath sounds, normal air movement Cardiovascular: nl pulses, regular rate and rhythm Gastrointestinal: non-tender, soft Musculoskeletal: nl extremities to inspection Neurological: KITCHEN HELP HANDYMAN II-XII intact, nl mental status, nl speech, nl strength Skin: nl turgor Lymph: nl lymph nodes Results Result Diagram: 01/16/17 0532 01/16/17 0532 Results 24 hrs Laboratory Tests Test 01/16/17 05:32 01/16/17 10:44 White Blood Count 18.8 H Red Blood Count 3.20 L Hemoglobin 9.9 L Hematocrit 28.4 L Mean Corpuscular Volume 88.8 Mean Corpuscular Hemoglobin 30.9 Mean Corpuscular Hemoglobin Concent 34.9 Red Cell Distribution Width 13.5 Platelet Count 133 L Mean Platelet Volume 9.5 Neutrophils % 85.0 H Lymphocytes % 8.6 L Monocytes % 4.6 Eosinophils % 0.2 Basophils % 0.1 Nucleated Red Blood Cells % 0.0 Neutrophils # (Manual) 16 H Lymphocytes # 1.6 Monocytes # 0.9 Eosinophils # 0.0 Basophils # 0.0 Nucleated Red Blood Cells # 0.0 Sodium Level 131 L Potassium Level 2.6 *L Chloride Level 97 Carbon Dioxide Level 24 Anion Gap 13 Blood Urea Nitrogen 58 H Creatinine 3.49 H Glucose Level 92 Calcium Level 7.5 L Phosphorus Level 4.0 Magnesium Level 1.6 L Lab Scanned Report REFERENCE LAB Medications Medications Current Medications Ondansetron HCl (Zofran Inj) 4 mg Q6H PRN IV NAUSEA AND/OR VOMITING Last administered on 01/15/17 22:25; Admin Dose 4 MG; Start 01/12/17 at 16:00 Acetaminophen (Tylenol Tab) 650 mg Q6H PRN PO PAIN LEVEL 1-3 OR FEVER; Start at 16:00 Acetaminophen/ Hydrocodone Bitart ([place] (5/325)) 1 tab Q6H PRN PO MODERATE PAIN LEVEL 4-6; Start 01/12/17 at 16:00 Hydromorphone HCl (Dilaudid) 0.5 mg Q4H PRN IV SEVERE PAIN LEVEL 7-10; Start at 16:00 Docusate Sodium (Colace) 100 mg Q12H PRN PO CONSTIPATION; Start 01/12/17 at 16: 00 Magnesium Hydroxide (Milk Of Mag) 30 ml DAILY PRN PO CONSTIPATION; Start at 16:00 Bisacodyl (Dulcolax Supp) 10 mg DAILY PRN [place] CONSTIPATION; Start 01/12/17 at 16 :00 Famotidine (Pepcid) 20 mg HS PO Last administered on 01/15/17 20:24; Admin Dose 20 MG; Start 01/12/17 at 21:00 Atorvastatin Calcium (Lipitor) 40 mg HS PO Last administered on 01/15/17 20:24 ; Admin Dose 40 MG; Start 01/12/17 at 21:00 Clonazepam (Klonopin) 1 mg Q8H PRN PO ANXIETY; Start 01/12/17 at 16:00 Escitalopram Oxalate (Lexapro) 10 mg DAILY PO Last administered on 01/16/17 08 :31; Admin Dose 10 MG; Start 01/13/17 at 09:00 Trazodone HCl (Desyrel) 100 mg HS PRN PO INSOMNIA Last administered on 20:24; Admin Dose 100 MG; Start 01/12/17 at 16:00 Allopurinol 100 mg 100 mg BID PO Last administered on 01/16/17 08:31; Admin Dose 100 MG; Start 01/13/17 at 21:00 Metronidazole 100 ml @ 100 mls/hr Q8 IVPB Last administered on 01/16/17 05:09 ; Admin Dose 100 MLS/HR; Start 01/13/17 at 18:00 Ciprofloxacin/ Dextrose 200 ml @ 200 mls/hr Q24H IVPB Last administered on 20:24; Admin Dose 200 MLS/HR; Start 01/13/17 at 20:00 Potassium Chloride/Dextrose (KCl/D5W) 265 ml @ 88.333 mls/ hr ONCE PRN IVPB IF K+ <3.6; Start 01/13/17 at 19:00 Lactulose (Enulose) 20 gm Q3 PRN PO constipation; Start 01/14/17 at 18:00 Citric Acid/ Sodium Citrate (Bicitra) 30 ml TID PO Last administered on 08:31; Admin Dose 30 ML; Start 01/15/17 at 13:00 Losartan Potassium 100 mg 100 mg DAILY PO Last administered on 01/16/17 08:33 ; Admin Dose 100 MG; Start 01/16/17 at 08:00 Potassium Chloride/Dextrose/ Sod Cl (D5-1/2ns + KCl 10 Meq) 1,000 ml @ 70 mls/ hr [id number] IV Last administered on 01/16/17 10:34; Admin Dose 70 MLS/HR; Start 01/16/17 at 09:30 JESSE STEELE MD Jan 16, 2017 11:41
[2017-01-16 12:40] LABS: CALCIUM 7.6 mg/dl (8.4-10.2); CREATININE 3.42 mg/dl (0.44-1.00); POTASSIUM 3.2 mmol/L (3.5-5.1)
--- NOTE | 2017-01-16 14:06 | PN ---
Date/Time of Note Date/Time of Note DATE: 01/16/17 TIME: 13:54 Assessment/Plan VTE Prophylaxis VTE Prophylaxis Intervention: SCD's Lines/Catheters IV [facility]ter [facility] (from [facility]): Peripheral IV Urinary Cath still in place: No Assessment/Plan Assessment/Plan 76 yo female with: 1. Acute kidney injury: Improving slowly with IV fluids and conservative management. She has prerenal azotemia, and chronic medical renal disease, appreciate recommendations from Dr. Art Gil, Continue current fluids. Strict I's and O's. Renal diet F/u BMP in a.m. Repleting electrolytes today, status post EGD and colonoscopy 01/14. 2. Subacute diarrhea for the past 3 weeks at least, patient likely prerenal azotemia from ongoing diarrhea. Leukocytosis, CT scan of the abdomen and pelvis with oral contrast did not reveal possible source of anemia; she does have diverticulosis without other findings. S/p EGD/[place] yesterday with ? diverticulitis on colonoscopy therefore patient has been on ciprofloxacin and Flagyl Monitor leukocytosis. 3. Anemia, symptomatic, severe, acute on chronic likely. S/p EGD with finding of Duodenal Ulcer, s/p hemo-clipping, s/p total 4 units pRBCs, Hb stable so far , 9.9 today. 4. Hypertension: Back on home medications and hold if needed 5. Anxiety/major depressive disorder: stable, worse after the of her recently. Continue home medications 6. Hyperlipidemia: Continue statin 7. Thrombocytopenia: Improving, monitor CBC. 8. Aortic aneurysm: stable at 3 cm; continue good BP control and beta narciso. Prophylaxis: Pepcid for GI prophylaxis, SCDs to lower extremity for DVT prophylaxis Disposition: IV fluids/bicarb gtt, nephrology and GI following. Discharge planning in 24-48 hours hopefully if leukocytosis is resolving, patient tolerating p.o., renal function improved. Subjective 24 Hr Interval Summary Free Text/Dictation Patient reports that she has less bowel movements, also reports less urine output. IV fluids have been restarted after she received electrolytes this morning. Repeat potassium at 3.2 with a creatinine of 3.4. We will give her another dose of potassium since she already got the magnesium. Afebrile, white blood cell count still elevated this morning. Physical therapy. Exam/Review of Systems Vital Signs Vitals Vital Signs Date Time Temp Pulse Resp B/P Pulse Ox O2 Delivery O2 Flow Rate FiO2 01/16/17 08:17 98.3 57 18 156/69 94 01/14/17 13:56 Room Air 01/14/17 13:46 2.0 Intake and Output 01/15/17 01/15/17 01/16/17 15:00 23:00 07:00 Intake Total 500 ml 1440 ml 1340 ml Output Total 400 ml Balance 500 ml 1040 ml 1340 ml Exam Constitutional: alert, oriented Respiratory: clear to auscultation, normal air movement Cardiovascular: nl pulses, regular rate and rhythm Gastrointestinal: non-tender, soft Musculoskeletal: nl extremities to inspection Extremities: normal pulses, other (No edema, clubbing or cyanosis) Neurological: HEAVY DUTY TRUCK MECHANIC II-XII intact, nl mental status, nl speech, other ( Generalized weakness) Results Result Diagram: 01/16/17 0532 01/16/17 1205 Results 24 hrs Laboratory Tests Test 01/16/17 05:32 01/16/17 10:44 01/16/17 12:05 White Blood Count 18.8 H Red Blood Count 3.20 L Hemoglobin 9.9 L Hematocrit 28.4 L Mean Corpuscular Volume 88.8 Mean Corpuscular Hemoglobin 30.9 Mean Corpuscular Hemoglobin Concent 34.9 Red Cell Distribution Width 13.5 Platelet Count 133 L Mean Platelet Volume 9.5 Neutrophils % 85.0 H Lymphocytes % 8.6 L Monocytes % 4.6 Eosinophils % 0.2 Basophils % 0.1 Nucleated Red Blood Cells % 0.0 Neutrophils # (Manual) 16 H Lymphocytes # 1.6 Monocytes # 0.9 Eosinophils # 0.0 Basophils # 0.0 Nucleated Red Blood Cells # 0.0 Sodium Level 131 L 134 L Potassium Level 2.6 *L 3.2 L Chloride Level 97 94 L Carbon Dioxide Level 24 26 Anion Gap 13 17 H Blood Urea Nitrogen 58 H 55 H Creatinine 3.49 H 3.42 H Glucose Level 92 97 Calcium Level 7.5 L 7.6 L Phosphorus Level 4.0 Magnesium Level 1.6 L Lab Scanned Report REFERENCE LAB Medications Medications Current Medications Ondansetron HCl (Zofran Inj) 4 mg Q6H PRN IV NAUSEA AND/OR VOMITING Last administered on 01/15/17t 22:25; Admin Dose 4 MG; Start 01/12/17 at 16:00 Acetaminophen (Tylenol Tab) 650 mg Q6H PRN PO PAIN LEVEL 1-3 OR FEVER; Start at 16:00 Acetaminophen/ Hydrocodone Bitart ([place] (5/325)) 1 tab Q6H PRN PO MODERATE PAIN LEVEL 4-6; Start 01/12/17 at 16:00 Hydromorphone HCl (Dilaudid) 0.5 mg Q4H PRN IV SEVERE PAIN LEVEL 7-10; Start at 16:00 Docusate Sodium (Colace) 100 mg Q12H PRN PO CONSTIPATION; Start 01/12/17 at 16: 00 Magnesium Hydroxide (Milk Of Mag) 30 ml DAILY PRN PO CONSTIPATION; Start at 16:00 Bisacodyl (Dulcolax Supp) 10 mg DAILY PRN [place] CONSTIPATION; Start 01/12/17 at 16 :00 Famotidine (Pepcid) 20 mg HS PO Last administered on 01/15/17 20:24; Admin Dose 20 MG; Start 01/12/17 at 21:00 Atorvastatin Calcium (Lipitor) 40 mg HS PO Last administered on 01/15/17 20:24 ; Admin Dose 40 MG; Start 01/12/17 at 21:00 Clonazepam (Klonopin) 1 mg Q8H PRN PO ANXIETY; Start 01/12/17 at 16:00 Escitalopram Oxalate (Lexapro) 10 mg DAILY PO Last administered on 01/16/17 08 :31; Admin Dose 10 MG; Start 01/13/17 at 09:00 Trazodone HCl (Desyrel) 100 mg HS PRN PO INSOMNIA Last administered on 20:24; Admin Dose 100 MG; Start 01/12/17 at 16:00 Allopurinol 100 mg 100 mg BID PO Last administered on 01/16/17 08:31; Admin Dose 100 MG; Start 01/13/17 at 21:00 Metronidazole 100 ml @ 100 mls/hr Q8 IVPB Last administered on 01/16/17 13:34 ; Admin Dose 100 MLS/HR; Start 01/13/17 at 18:00 Ciprofloxacin/ Dextrose 200 ml @ 200 mls/hr Q24H IVPB Last administered on 20:24; Admin Dose 200 MLS/HR; Start 01/13/17 at 20:00 Potassium Chloride/Dextrose (KCl/D5W) 265 ml @ 88.333 mls/ hr ONCE PRN IVPB IF K+ <3.6; Start 01/13/17 at 19:00 Lactulose (Enulose) 20 gm Q3 PRN PO constipation; Start 01/14/17 at 18:00 Citric Acid/ Sodium Citrate (Bicitra) 30 ml TID PO Last administered on 13:34; Admin Dose 30 ML; Start 01/15/17 at 13:00 Losartan Potassium 100 mg 100 mg DAILY PO Last administered on 01/16/17 08:33 ; Admin Dose 100 MG; Start 01/16/17 at 08:00 Potassium Chloride/Dextrose/ Sod Cl (D5-1/2ns + KCl 10 Meq) 1,000 ml @ 70 mls/ hr [id number] IV Last administered on 01/16/17 10:34; Admin Dose 70 MLS/HR; Start 01/16/17 at 09:30 ALEXANDRA ELIZONDO Jan 16, 2017 14:05
[2017-01-16 15:13] VITALS: BP 151/89; RESP 19
[2017-01-16 19:22] VITALS: BP 156/69; RESP 20
[2017-01-16] MEDS: FAMOTIDINE 20 MG TAB PO SCH (20:49)
[2017-01-16] MEDS: CIPROFLOXACIN 400MG/D5W 200 ML IVPB SCH (20:49)
[2017-01-16] MEDS: ATORVASTATIN 40 MG TAB PO SCH (20:49)
[2017-01-16] MEDS: traZODone 100 MG TAB PO PRN (20:49)
[2017-01-17] MEDS: D5W-0.45 NACL + KCL 10 MEQ 1,000 ML IV SCH ×3 (02:16→21:32)
[2017-01-17 02:42] VITALS: BP 134/80; RESP 20
[2017-01-17 05:31] LABS: BASOPHILS % 0.2 % (0.0-2.0); EOSINOPHILS # 0.1 10^3/ul (0.0-0.5); EOSINOPHILS % 0.5 % (0.0-7.0); HEMATOCRIT 26.9 % (37.0-47.0); HEMOGLOBIN 9.6 g/dl (12.0-16.0); LYMPHOCYTES # 1.7 10^3/ul (0.8-2.9); LYMPHOCYTES % 9.1 % (15.0-51.0); MEAN CORPUSCULAR HEMOGLOBIN 32.4 pg (29.0-33.0); MEAN CORPUSCULAR HGB CONC 35.7 g/dl (32.0-37.0); MEAN CORPUSCULAR VOLUME 90.9 fl (82.0-101.0); MEAN PLATELET VOLUME 9.2 fl (7.4-10.4); MONOCYTES % 5.7 % (0.0-11.0); NEUTROPHILS % 83.5 % (39.0-77.0); PLATELET COUNT 152 10^3/UL (140-415); RED BLOOD COUNT 2.96 10^6/ul (4.20-5.40); RED CELL DISTRIBUTION WIDTH 13.8 % (11.5-14.5); WHITE BLOOD COUNT 18.3 10^3/ul (4.8-10.8)
[2017-01-17] MEDS: metroNIDAZOLE 500 MG/NS (PMX) 100 ML IVPB SCH ×2 (05:34→13:45)
[2017-01-17 06:11] LABS: CALCIUM 7.5 mg/dl (8.4-10.2); CREATININE 3.13 mg/dl (0.44-1.00); POTASSIUM 3.9 mmol/L (3.5-5.1)
[2017-01-17 06:38] LABS: MAGNESIUM 2.2 mg/dl (1.7-2.5); PHOSPHORUS 2.8 mg/dl (2.5-4.9)
[2017-01-17 07:50] VITALS: BP 162/71; RESP 16
[2017-01-17] MEDS: LOSARTAN 50 MG TAB PO SCH (08:06)
[2017-01-17] MEDS: ESCITALOPRAM 10 MG TAB PO SCH (08:06)
[2017-01-17] MEDS: ALLOPURINOL 100 MG TAB PO SCH ×2 (08:06→21:10)
[2017-01-17] MEDS: CITRIC ACID/NA CITRATE 30 ML CUP PO SCH ×3 (08:06→21:09)
--- NOTE | 2017-01-17 12:19 | CONS ---
Date/Time of Note Date/Time of Note DATE: 01/17/17 TIME: 12:16 Assessment/Plan Assessment/Plan Additional Assessment/Plan 1. acute kidney injury 2/2 severe prerenal azotemia, no previous Cr available for comparison 2. pt has CKD possibly due to HTN 3. HTN 4. hyperlipidemia 5. anxiety, depression 6. Hyperuricemia- will start on Allopurinol 100m g po BID 7. Stool for occult blood- positive. SP EGD/ colonoscopy 8. Anemia- SP 2 PRBC transfusion yesterday- H/H IMPROVED. 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 because her kidneys are atrophic and echogenic will keep one more day to make sure she voids ok and BUN/Cr continues to imrpove , but if discharged, Follow up with me in [facility] 1 week after discharge() will follow up Consultation Date/Type/Reason Admit Date/Time Jan 12, 2017 at 14:52 Initial Consult Date 01/12/17 Type of Consultation: NEPHROLOGY Referring Provider: ALEXANDRA ELIZONDO 24 HR Interval Summary Free Text/Dictation doing ok, BUN/Cr slowly improving, Cr 3.1 today Exam/Review of Systems Vital Signs Vitals Vital Signs Date Time Temp Pulse Resp B/P Pulse Ox O2 Delivery O2 Flow Rate FiO2 01/17/17 07:50 98.5 64 16 162/71 95 01/14/17 13:56 Room Air 01/14/17 13:46 2.0 Intake and Output 01/16/17 01/16/17 01/17/17 15:00 23:00 07:00 Intake Total 195 ml 2009 ml 625 ml Balance 195 ml 2010 ml 625 ml Exam Constitutional: alert, oriented, well developed Psych: no complaints Head: normocephalic Eyes: EOMI, nl conjunctiva ENMT: nl external ears & nose Neck: non-tender, supple Respiratory: clear to auscultation, diminished breath sounds, normal air movement Cardiovascular: nl pulses, regular rate and rhythm Gastrointestinal: non-tender, soft Musculoskeletal: nl extremities to inspection Neurological: WWE WRESTLER II-XII intact, nl mental status, nl speech, nl strength Skin: nl turgor Lymph: nl lymph nodes Results Result Diagram: 01/17/17 0510 01/17/17 0510 Results 24 hrs Laboratory Tests Test 01/17/17 05:10 White Blood Count 18.3 H Red Blood Count 2.96 L Hemoglobin 9.6 L Hematocrit 26.9 L Mean Corpuscular Volume 90.9 Mean Corpuscular Hemoglobin 32.4 Mean Corpuscular Hemoglobin Concent 35.7 Red Cell Distribution Width 13.8 Platelet Count 152 Mean Platelet Volume 9.2 Neutrophils % 83.5 H Lymphocytes % 9.1 L Monocytes % 5.7 Eosinophils % 0.5 Basophils % 0.2 Nucleated Red Blood Cells % 0.0 Neutrophils # (Manual) 15 H Lymphocytes # 1.7 Monocytes # 1.0 H Eosinophils # 0.1 Basophils # 0.0 Nucleated Red Blood Cells # 0.0 Sodium Level 133 L Potassium Level 3.9 Chloride Level 96 L Carbon Dioxide Level 26 Anion Gap 15 Blood Urea Nitrogen 48 H Creatinine 3.13 H Glucose Level 100 Calcium Level 7.5 L Phosphorus Level 2.8 Magnesium Level 2.2 Medications Medications Current Medications Ondansetron HCl (Zofran Inj) 4 mg Q6H PRN IV NAUSEA AND/OR VOMITING Last administered on 01/15/17 22:25; Admin Dose 4 MG; Start 01/12/17 at 16:00 Acetaminophen (Tylenol Tab) 650 mg Q6H PRN PO PAIN LEVEL 1-3 OR FEVER; Start at 16:00 Acetaminophen/ Hydrocodone Bitart ([place] (5/325)) 1 tab Q6H PRN PO MODERATE PAIN LEVEL 4-6; Start 01/12/17 at 16:00 Hydromorphone HCl (Dilaudid) 0.5 mg Q4H PRN IV SEVERE PAIN LEVEL 7-10; Start at 16:00 Docusate Sodium (Colace) 100 mg Q12H PRN PO CONSTIPATION; Start 01/12/17 at 16: 00 Magnesium Hydroxide (Milk Of Mag) 30 ml DAILY PRN PO CONSTIPATION; Start at 16:00 Bisacodyl (Dulcolax Supp) 10 mg DAILY PRN [place] CONSTIPATION; Start 01/12/17 at 16 :00 Famotidine (Pepcid) 20 mg HS PO Last administered on 01/16/17 20:49; Admin Dose 20 MG; Start 01/12/17 at 21:00 Atorvastatin Calcium (Lipitor) 40 mg HS PO Last administered on 01/16/17 20:49 ; Admin Dose 40 MG; Start 01/12/17 at 21:00 Clonazepam (Klonopin) 1 mg Q8H PRN PO ANXIETY; Start 01/12/17 at 16:00 Escitalopram Oxalate (Lexapro) 10 mg DAILY PO Last administered on 01/17/17 08 :06; Admin Dose 10 MG; Start 01/13/17 at 09:00 Trazodone HCl (Desyrel) 100 mg HS PRN PO INSOMNIA Last administered on 20:49; Admin Dose 100 MG; Start 01/12/17 at 16:00 Allopurinol 100 mg 100 mg BID PO Last administered on 01/17/17 08:06; Admin Dose 100 MG; Start 01/13/17 at 21:00 Metronidazole 100 ml @ 100 mls/hr Q8 IVPB Last administered on 01/17/17 05:34 ; Admin Dose 100 MLS/HR; Start 01/13/17 at 18:00 Ciprofloxacin/ Dextrose 200 ml @ 200 mls/hr Q24H IVPB Last administered on 20:49; Admin Dose 200 MLS/HR; Start 01/13/17 at 20:00 Potassium Chloride/Dextrose (KCl/D5W) 265 ml @ 88.333 mls/ hr ONCE PRN IVPB IF K+ <3.6; Start 01/13/17 at 19:00 Lactulose (Enulose) 20 gm Q3 PRN PO constipation; Start 01/14/17 at 18:00 Citric Acid/ Sodium Citrate (Bicitra) 30 ml TID PO Last administered on 08:06; Admin Dose 30 ML; Start 01/15/17 at 13:00 Losartan Potassium 100 mg 100 mg DAILY PO Last administered on 01/17/17 08:06 ; Admin Dose 100 MG; Start 01/16/17 at 08:00 Potassium Chloride/Dextrose/ Sod Cl (D5-1/2ns + KCl 10 Meq) 1,000 ml @ 70 mls/ hr [id number] IV Last administered on 01/17/17 02:16; Admin Dose 70 MLS/HR; Start 01/16/17 at 09:30 JESSE STEELE MD Jan 17, 2017 12:18
[2017-01-17 13:29] VITALS: BP 131/61; RESP 16
--- NOTE | 2017-01-17 14:43 | PN ---
Date/Time of Note Date/Time of Note DATE: 01/17/17 TIME: 14:36 Assessment/Plan VTE Prophylaxis VTE Prophylaxis Intervention: SCD's Lines/Catheters [facility] Peripheral IV Urinary Cath still in place: No Assessment/Plan Assessment/Plan 76 yo female with: 1. Acute kidney injury: Improving slowly with IV fluids and conservative management. She has prerenal azotemia, and chronic medical renal disease CKD 4 per nephrology, appreciate recommendations from Dr. Art Gil, Continue current fluids. Strict I's and O's. Renal diet F/u BMP in a.m. electrolytes stable today. Status post EGD and colonoscopy 01/14. 2. Subacute diarrhea for the past 3 weeks at least, patient likely prerenal azotemia from ongoing diarrhea. Leukocytosis, CT scan of the abdomen and pelvis with oral contrast did not reveal possible source of anemia; she does have diverticulosis without other findings. S/p EGD/[place] yesterday with ? diverticulitis on colonoscopy therefore patient has been on ciprofloxacin and Flagyl, will change Flagyl to p.o., rechecking stool studies Monitor leukocytosis. 3. Anemia, symptomatic, severe, acute on chronic likely. S/p EGD with finding of Duodenal Ulcer, s/p hemo-clipping, s/p total 4 units pRBCs, Hb stable so far. 4. Hypertension: Back on home medications and hold if needed 5. Anxiety/major depressive disorder: stable, worse after the of her recently. Continue home medications 6. Hyperlipidemia: Continue statin 7. Thrombocytopenia: Improving, monitor CBC. 8. Aortic aneurysm: stable at 3 cm; continue good BP control and beta narciso. Prophylaxis: Pepcid for GI prophylaxis, SCDs to lower extremity for DVT prophylaxis Disposition: IV fluids/bicarb gtt, nephrology and GI following. Discharge planning in 24-48 hours hopefully if leukocytosis is resolving, patient tolerating p.o., renal function improved. Subjective 24 Hr Interval Summary Free Text/Dictation Patient still having loose stools, decreased output. We will recheck stool studies including C. difficile. Flagyl changed to p.o. No fevers, no chills, tolerating p.o. she reports that she is occasionally dizzy but improved. Hemoglobin stable Renal function improving slowly Son Jer called and updated, he is interested in SNF placement for his mother at discharge prior to return to Assisted Living Facility Exam/Review of Systems Vital Signs Vitals Vital Signs Date Time Temp Pulse Resp B/P Pulse Ox O2 Delivery O2 Flow Rate FiO2 01/17/17 13:29 98.3 75 16 131/61 96 01/14/17 13:56 Room Air 01/14/17 13:46 2.0 Intake and Output 01/16/17 01/16/17 01/17/17 14:59 22:59 06:59 Intake Total 195 ml 1910 ml 725 ml Balance 195 ml 1910 ml 725 ml Exam Constitutional: alert, frail, oriented, other (Elderly) Respiratory: clear to auscultation, normal air movement Cardiovascular: nl pulses, regular rate and rhythm Gastrointestinal: non-tender, soft Musculoskeletal: nl extremities to inspection, other (No edema, clubbing or cyanosis) Extremities: normal pulses, other (No edema) Neurological: ANTENNA SPECIALIST II-XII intact, nl mental status, nl speech, nl strength Results Result Diagram: 01/17/17 0510 01/17/17 0510 Results 24 hrs Laboratory Tests Test 01/17/17 05:10 White Blood Count 18.3 H Red Blood Count 2.96 L Hemoglobin 9.6 L Hematocrit 26.9 L Mean Corpuscular Volume 90.9 Mean Corpuscular Hemoglobin 32.4 Mean Corpuscular Hemoglobin Concent 35.7 Red Cell Distribution Width 13.8 Platelet Count 152 Mean Platelet Volume 9.2 Neutrophils % 83.5 H Lymphocytes % 9.1 L Monocytes % 5.7 Eosinophils % 0.5 Basophils % 0.2 Nucleated Red Blood Cells % 0.0 Neutrophils # (Manual) 15 H Lymphocytes # 1.7 Monocytes # 1.0 H Eosinophils # 0.1 Basophils # 0.0 Nucleated Red Blood Cells # 0.0 Sodium Level 133 L Potassium Level 3.9 Chloride Level 96 L Carbon Dioxide Level 26 Anion Gap 15 Blood Urea Nitrogen 48 H Creatinine 3.13 H Glucose Level 100 Calcium Level 7.5 L Phosphorus Level 2.8 Magnesium Level 2.2 Medications Medications Current Medications Ondansetron HCl (Zofran Inj) 4 mg Q6H PRN IV NAUSEA AND/OR VOMITING Last administered on 01/15/17t 22:25; Admin Dose 4 MG; Start 01/12/17 at 16:00 Acetaminophen (Tylenol Tab) 650 mg Q6H PRN PO PAIN LEVEL 1-3 OR FEVER; Start at 16:00 Acetaminophen/ Hydrocodone Bitart ([place] (5/325)) 1 tab Q6H PRN PO MODERATE PAIN LEVEL 4-6; Start 01/12/17 at 16:00 Hydromorphone HCl (Dilaudid) 0.5 mg Q4H PRN IV SEVERE PAIN LEVEL 7-10; Start at 16:00 Docusate Sodium (Colace) 100 mg Q12H PRN PO CONSTIPATION; Start 01/12/17 at 16: 00 Magnesium Hydroxide (Milk Of Mag) 30 ml DAILY PRN PO CONSTIPATION; Start at 16:00 Bisacodyl (Dulcolax Supp) 10 mg DAILY PRN [place] CONSTIPATION; Start 01/12/17 at 16 :00 Famotidine (Pepcid) 20 mg HS PO Last administered on 01/16/17 20:49; Admin Dose 20 MG; Start 01/12/17 at 21:00 Atorvastatin Calcium (Lipitor) 40 mg HS PO Last administered on 01/16/17 20:49 ; Admin Dose 40 MG; Start 01/12/17 at 21:00 Clonazepam (Klonopin) 1 mg Q8H PRN PO ANXIETY; Start 01/12/17 at 16:00 Escitalopram Oxalate (Lexapro) 10 mg DAILY PO Last administered on 01/17/17 08 :06; Admin Dose 10 MG; Start 01/13/17 at 09:00 Trazodone HCl (Desyrel) 100 mg HS PRN PO INSOMNIA Last administered on 20:49; Admin Dose 100 MG; Start 01/12/17 at 16:00 Allopurinol 100 mg 100 mg BID PO Last administered on 01/17/17 08:06; Admin Dose 100 MG; Start 01/13/17 at 21:00 Metronidazole 100 ml @ 100 mls/hr Q8 IVPB Last administered on 01/17/17 13:45 ; Admin Dose 100 MLS/HR; Start 01/13/17 at 18:00 Ciprofloxacin/ Dextrose 200 ml @ 200 mls/hr Q24H IVPB Last administered on 20:49; Admin Dose 200 MLS/HR; Start 8/19/17 at 20:00 Potassium Chloride/Dextrose (KCl/D5W) 265 ml @ 88.333 mls/ hr ONCE PRN IVPB IF K+ <3.6; Start 01/13/17 at 19:00 Lactulose (Enulose) 20 gm Q3 PRN PO constipation; Start 01/14/17 at 18:00 Citric Acid/ Sodium Citrate (Bicitra) 30 ml TID PO Last administered on 13:45; Admin Dose 30 ML; Start 01/15/17 at 13:00 Losartan Potassium 100 mg 100 mg DAILY PO Last administered on 01/17/17 08:06 ; Admin Dose 100 MG; Start 01/16/17 at 08:00 Potassium Chloride/Dextrose/ Sod Cl (D5-1/2ns + KCl 10 Meq) 1,000 ml @ 70 mls/ hr [id number] IV Last administered on 01/17/17 02:16; Admin Dose 70 MLS/HR; Start 01/16/17 at 09:30 ALEXANDRA ELIZONDO Jan 17, 2017 14:42
[2017-01-17 20:18] VITALS: BP 143/64; RESP 18
[2017-01-17] MEDS: traZODone 100 MG TAB PO PRN (21:09)
[2017-01-17] MEDS: ATORVASTATIN 40 MG TAB PO SCH (21:09)
[2017-01-17] MEDS: FAMOTIDINE 20 MG TAB PO SCH (21:09)
[2017-01-17] MEDS: CIPROFLOXACIN 400MG/D5W 200 ML IVPB SCH (21:09)
[2017-01-17] MEDS: metroNIDAZOLE 500 MG TAB PO SCH (21:31)
[2017-01-18 02:32] VITALS: BP 126/57; RESP 18
[2017-01-18] MEDS: D5W-0.45 NACL + KCL 10 MEQ 1,000 ML IV SCH ×2 (04:24→13:58)
[2017-01-18] MEDS: metroNIDAZOLE 500 MG TAB PO SCH ×3 (06:00→20:51)
[2017-01-18 06:10] LABS: BASOPHILS % 0.1 % (0.0-2.0); EOSINOPHILS # 0.2 10^3/ul (0.0-0.5); EOSINOPHILS % 1.5 % (0.0-7.0); HEMATOCRIT 28.3 % (37.0-47.0); HEMOGLOBIN 9.8 g/dl (12.0-16.0); LYMPHOCYTES # 1.9 10^3/ul (0.8-2.9); LYMPHOCYTES % 11.5 % (15.0-51.0); MEAN CORPUSCULAR HEMOGLOBIN 32.5 pg (29.0-33.0); MEAN CORPUSCULAR HGB CONC 34.6 g/dl (32.0-37.0); MEAN CORPUSCULAR VOLUME 93.7 fl (82.0-101.0); MEAN PLATELET VOLUME 9.3 fl (7.4-10.4); MONOCYTES % 6.2 % (0.0-11.0); NEUTROPHILS % 79.8 % (39.0-77.0); PLATELET COUNT 191 10^3/UL (140-415); RED BLOOD COUNT 3.02 10^6/ul (4.20-5.40); RED CELL DISTRIBUTION WIDTH 14.3 % (11.5-14.5); WHITE BLOOD COUNT 16.3 10^3/ul (4.8-10.8)
[2017-01-18 06:23] LABS: ALBUMIN 2.1 g/dl (3.3-4.9); ALBUMIN/GLOBULIN RATIO 0.87; BILIRUBIN,INDIRECT 0.1 mg/dl (0-1.1); BILIRUBIN,TOTAL 0.1 mg/dl (0.2-1.3); CALCIUM 7.5 mg/dl (8.4-10.2); CREATININE 3.21 mg/dl (0.44-1.00); POTASSIUM 4.1 mmol/L (3.5-5.1); TOTAL PROTEIN 4.5 g/dl (6.1-8.1)
[2017-01-18 06:45] LABS: PHOSPHORUS 2.9 mg/dl (2.5-4.9)
[2017-01-18 07:19] VITALS: BP 158/71; RESP 18
[2017-01-18] MEDS: CITRIC ACID/NA CITRATE 30 ML CUP PO SCH ×3 (09:24→20:50)
[2017-01-18] MEDS: LOSARTAN 50 MG TAB PO SCH (09:25)
[2017-01-18] MEDS: ALLOPURINOL 100 MG TAB PO SCH ×2 (09:26→20:51)
[2017-01-18] MEDS: ESCITALOPRAM 10 MG TAB PO SCH (09:26)
--- NOTE | 2017-01-18 11:58 | CONS ---
Date/Time of Note Date/Time of Note DATE: 01/18/17 TIME: 11:57 Assessment/Plan Assessment/Plan Additional Assessment/Plan 1. acute kidney injury 2/2 severe prerenal azotemia, no previous Cr available for comparison 2. pt has CKD possibly due to HTN 3. HTN 4. hyperlipidemia 5. anxiety, depression 6. Hyperuricemia- will start on Allopurinol 100m g po BID 7. Stool for occult blood- positive. SP EGD/ colonoscopy 8. Anemia- SP 2 PRBC transfusion yesterday- H/H IMPROVED. - GI following Plan: K and Mag normal, Na 130- BUN/Cr slowly improving, Cr 3.1 today Expecting BUN/Cr to improve with IVF hydration but pt has CKD IV likely because her kidneys are atrophic and echogenic Follow up with me in [facility] 1-2 week after discharge([phone]) will follow up Consultation Date/Type/Reason Admit Date/Time Jan 12, 2017 at 14:52 Initial Consult Date 01/12/17 Type of Consultation: NEPHROLOGY Referring Provider: ALEXANDRA ELIZONDO 24 HR Interval Summary Free Text/Dictation doing , Cr stable , Exam/Review of Systems Vital Signs Vitals Vital Signs Date Time Temp Pulse Resp B/P Pulse Ox O2 Delivery O2 Flow Rate FiO2 01/18/17 07:19 98.7 69 18 158/71 96 01/14/17 13:56 Room Air 01/14/17 13:46 2.0 Intake and Output 01/17/17 01/17/17 01/18/17 15:00 23:00 07:00 Intake Total 100 ml 1675 ml 1340 ml Output Total 30 ml 550 ml Balance 70 ml 1675 ml 790 ml Exam Constitutional: alert, oriented, well developed Psych: no complaints Head: normocephalic Eyes: EOMI, nl conjunctiva ENMT: nl external ears & nose Neck: non-tender, supple Respiratory: clear to auscultation, diminished breath sounds, normal air movement Cardiovascular: nl pulses, regular rate and rhythm Gastrointestinal: non-tender, soft Musculoskeletal: nl extremities to inspection Neurological: STUDY SPECIALIST II-XII intact, nl mental status, nl speech, nl strength Skin: nl turgor Lymph: nl lymph nodes Results Result Diagram: 01/18/1751901/18/17 0520 Results 24 hrs Laboratory Tests Test 01/18/17 05:20 White Blood Count 16.3 H Red Blood Count 3.02 L Hemoglobin 9.8 L Hematocrit 28.3 L Mean Corpuscular Volume 93.7 Mean Corpuscular Hemoglobin 32.5 Mean Corpuscular Hemoglobin Concent 34.6 Red Cell Distribution Width 14.3 Platelet Count 191 # Mean Platelet Volume 9.3 Neutrophils % 79.8 H Lymphocytes % 11.5 L Monocytes % 6.2 Eosinophils % 1.5 Basophils % 0.1 Nucleated Red Blood Cells % 0.0 Neutrophils # (Manual) 13 H Lymphocytes # 1.9 Monocytes # 1.0 H Eosinophils # 0.2 Basophils # 0.0 Nucleated Red Blood Cells # 0.0 Sodium Level 130 L Potassium Level 4.1 Chloride Level 97 Carbon Dioxide Level 28 Anion Gap 9 # Blood Urea Nitrogen 41 H Creatinine 3.21 H Glucose Level 86 Calcium Level 7.5 L Phosphorus Level 2.9 Magnesium Level 2.0 Total Bilirubin 0.1 L Direct Bilirubin 0.00 Indirect Bilirubin 0.1 Aspartate Amino Transf (AST/SGOT) 33 Alanine Aminotransferase (ALT/SGPT) 37 Alkaline Phosphatase 65 Total Protein 4.5 L Albumin 2.1 L Globulin 2.40 Albumin/Globulin Ratio 0.87 Medications Medications Current Medications Ondansetron HCl (Zofran Inj) 4 mg Q6H PRN IV NAUSEA AND/OR VOMITING Last administered on 01/15/17t 22:25; Admin Dose 4 MG; Start 01/12/17 at 16:00 Acetaminophen (Tylenol Tab) 650 mg Q6H PRN PO PAIN LEVEL 1-3 OR FEVER; Start at 16:00 Acetaminophen/ Hydrocodone Bitart ([place] (5/325)) 1 tab Q6H PRN PO MODERATE PAIN LEVEL 4-6; Start 01/12/17 at 16:00 Hydromorphone HCl (Dilaudid) 0.5 mg Q4H PRN IV SEVERE PAIN LEVEL 7-10; Start at 16:00 Docusate Sodium (Colace) 100 mg Q12H PRN PO CONSTIPATION; Start 01/12/17 at 16: 00 Magnesium Hydroxide (Milk Of Mag) 30 ml DAILY PRN PO CONSTIPATION; Start at 16:00 Bisacodyl (Dulcolax Supp) 10 mg DAILY PRN [place] CONSTIPATION; Start 01/12/17 at 16 :00 Famotidine (Pepcid) 20 mg HS PO Last administered on 01/17/17 21:09; Admin Dose 20 MG; Start 01/12/17 at 21:00 Atorvastatin Calcium (Lipitor) 40 mg HS PO Last administered on 01/17/17 21:09 ; Admin Dose 40 MG; Start 01/12/17 at 21:00 Clonazepam (Klonopin) 1 mg Q8H PRN PO ANXIETY; Start 01/12/17 at 16:00 Escitalopram Oxalate (Lexapro) 10 mg DAILY PO Last administered on 01/18/17 09 :26; Admin Dose 10 MG; Start 01/13/17 at 09:00 Trazodone HCl (Desyrel) 100 mg HS PRN PO INSOMNIA Last administered on 21:09; Admin Dose 100 MG; Start 01/12/17 at 16:00 Allopurinol 100 mg 100 mg BID PO Last administered on 01/18/17 09:26; Admin Dose 100 MG; Start 01/13/17 at 21:00 Ciprofloxacin/ Dextrose 200 ml @ 200 mls/hr Q24H IVPB Last administered on 21:09; Admin Dose 200 MLS/HR; Start 01/13/17 at 20:00 Potassium Chloride/Dextrose (KCl/D5W) 265 ml @ 88.333 mls/ hr ONCE PRN IVPB IF K+ <3.6; Start 01/13/17 at 19:00 Lactulose (Enulose) 20 gm Q3 PRN PO constipation; Start 01/14/17 at 18:00 Citric Acid/ Sodium Citrate (Bicitra) 30 ml TID PO Last administered on 09:24; Admin Dose 30 ML; Start 01/15/17 at 13:00 Losartan Potassium 100 mg 100 mg DAILY PO Last administered on 01/18/17 09:25 ; Admin Dose 100 MG; Start 01/16/17 at 08:00 Potassium Chloride/Dextrose/ Sod Cl (D5-1/2ns + KCl 10 Meq) 1,000 ml @ 70 mls/ hr [id number] IV Last administered on 01/17/17 21:32; Admin Dose 70 MLS/HR; Start 01/16/17 at 09:30 Metronidazole (Flagyl) 500 mg Q8 PO Last administered on 01/18/17t 06:00; Admin Dose 500 MG; Start 01/17/17 at 22:00 JESSE STEELE MD Jan 18, 2017 11:58
[2017-01-18 14:29] VITALS: BP 157/67; RESP 18
--- NOTE | 2017-01-18 14:49 | PN ---
Date/Time of Note Date/Time of Note DATE: 01/18/17 TIME: 14:38 Assessment/Plan VTE Prophylaxis VTE Prophylaxis Intervention: SCD's Lines/Catheters [facility] Saline Lock Urinary Cath still in place: No Assessment/Plan Assessment/Plan 76 yo female with: 1. Acute kidney injury: Improving slowly with IV fluids and conservative management. She has prerenal azotemia, and chronic medical renal disease CKD 4 per nephrology, appreciate recommendations from dexter Jurado to discharge patient from nephrology standpoint. I will DC IV fluid Changing to a soft diet/renal diet F/u BMP in a.m. electrolytes Status post EGD and colonoscopy 01/14. Discharge planning to [facility] facility tomorrow if white blood cell count stable or improved and renal function stable off IV fluid. 2. Subacute diarrhea for the past 3 weeks at least, patient likely prerenal azotemia from ongoing diarrhea. Leukocytosis, CT scan of the abdomen and pelvis with oral contrast did not reveal possible source of anemia; she does have diverticulosis without other findings. S/p EGD/[place] yesterday with ? diverticulitis on colonoscopy therefore patient has been on ciprofloxacin and Flagyl, will change Flagyl to p.o., rechecking stool studies Monitor leukocytosis seems to be decreasing. 3. Anemia, symptomatic, severe, acute on chronic likely. S/p EGD with finding of Duodenal Ulcer, s/p hemo-clipping, s/p total 4 units pRBCs, Hb stable so far. 4. Hypertension: Back on home medications and hold if needed 5. Anxiety/major depressive disorder: stable, worse after the of her recently. Continue home medications 6. Hyperlipidemia: Continue statin 7. Thrombocytopenia: Improving, monitor CBC. 8. Aortic aneurysm: stable at 3 cm; continue good BP control and beta narciso. Prophylaxis: Pepcid for GI prophylaxis, SCDs to lower extremity for DVT prophylaxis Disposition: DC IV fluids, changing all medications to p.o. Discharge planning to [facility] facility in 24 hours hopefully if leukocytosis is resolving, renal function stable and tolerating soft diet. Subjective 24 Hr Interval Summary Free Text/Dictation Patient feels somewhat better today, she feels weak however, she still on full liquid therefore it will be advanced to soft diet. Change ciprofloxacin to p.o. , C. difficile negative today again. Plan for discharge to [facility] facility tomorrow on oral antibiotics. Trial of Imodium overnight since all stool culture mostly negative and C. difficile negative. Patient recommendations from nephrology, will DC IV fluids and repeat labs in a.m. Exam/Review of Systems Vital Signs Vitals Vital Signs Date Time Temp Pulse Resp B/P Pulse Ox O2 Delivery O2 Flow Rate FiO2 01/18/17 14:29 98.2 60 18 157/67 97 01/14/17 13:56 Room Air 01/14/17 13:46 2.0 Intake and Output 01/17/17 01/17/17 01/18/17 15:00 23:00 07:00 Intake Total 100 ml 1675 ml 1340 ml Output Total 30 ml 550 ml Balance 70 ml 1675 ml 790 ml Exam Constitutional: alert, frail, oriented Respiratory: clear to auscultation, normal air movement Cardiovascular: nl pulses, regular rate and rhythm Gastrointestinal: non-tender, other (2-3 loose stools a day), soft Musculoskeletal: nl extremities to inspection Extremities: normal pulses Neurological: TERMITE CONTROL TECHNICIAN II-XII intact, nl mental status, nl speech, other ( Generalized weakness) Results Result Diagram: 01/18/17 0520 01/18/17 0520 Results 24 hrs Laboratory Tests Test 01/18/17 05:20 White Blood Count 16.3 H Red Blood Count 3.02 L Hemoglobin 9.8 L Hematocrit 28.3 L Mean Corpuscular Volume 93.7 Mean Corpuscular Hemoglobin 32.5 Mean Corpuscular Hemoglobin Concent 34.6 Red Cell Distribution Width 14.3 Platelet Count 191 # Mean Platelet Volume 9.3 Neutrophils % 79.8 H Lymphocytes % 11.5 L Monocytes % 6.2 Eosinophils % 1.5 Basophils % 0.1 Nucleated Red Blood Cells % 0.0 Neutrophils # (Manual) 13 H Lymphocytes # 1.9 Monocytes # 1.0 H Eosinophils # 0.2 Basophils # 0.0 Nucleated Red Blood Cells # 0.0 Sodium Level 133 L Potassium Level 4.1 Chloride Level 97 Carbon Dioxide Level 28 Anion Gap 12 Blood Urea Nitrogen 41 H Creatinine 3.21 H Glucose Level 86 Calcium Level 7.5 L Phosphorus Level 2.9 Magnesium Level 2.0 Total Bilirubin 0.1 L Direct Bilirubin 0.00 Indirect Bilirubin 0.1 Aspartate Amino Transf (AST/SGOT) 33 Alanine Aminotransferase (ALT/SGPT) 37 Alkaline Phosphatase 65 Total Protein 4.5 L Albumin 2.1 L Globulin 2.40 Albumin/Globulin Ratio 0.87 Medications Medications Current Medications Ondansetron HCl (Zofran Inj) 4 mg Q6H PRN IV NAUSEA AND/OR VOMITING Last administered on 01/15/17 22:25; Admin Dose 4 MG; Start 01/12/17 at 16:00 Acetaminophen (Tylenol Tab) 650 mg Q6H PRN PO PAIN LEVEL 1-3 OR FEVER; Start at 16:00 Acetaminophen/ Hydrocodone Bitart ([place] (5/325)) 1 tab Q6H PRN PO MODERATE PAIN LEVEL 4-6; Start 01/12/17 at 16:00 Hydromorphone HCl (Dilaudid) 0.5 mg Q4H PRN IV SEVERE PAIN LEVEL 7-10; Start at 16:00 Docusate Sodium (Colace) 100 mg Q12H PRN PO CONSTIPATION; Start 01/12/17 at 16: 00 Magnesium Hydroxide (Milk Of Mag) 30 ml DAILY PRN PO CONSTIPATION; Start at 16:00 Bisacodyl (Dulcolax Supp) 10 mg DAILY PRN [place] CONSTIPATION; Start 01/12/17 at 16 :00 Famotidine (Pepcid) 20 mg HS PO Last administered on 01/17/17 21:09; Admin Dose 20 MG; Start 01/12/17 at 21:00 Atorvastatin Calcium (Lipitor) 40 mg HS PO Last administered on 01/17/17 21:09 ; Admin Dose 40 MG; Start 01/12/17 at 21:00 Clonazepam (Klonopin) 1 mg Q8H PRN PO ANXIETY; Start 01/12/17 at 16:00 Escitalopram Oxalate (Lexapro) 10 mg DAILY PO Last administered on 01/18/17 09 :26; Admin Dose 10 MG; Start 01/13/17 at 09:00 Trazodone HCl (Desyrel) 100 mg HS PRN PO INSOMNIA Last administered on 21:09; Admin Dose 100 MG; Start 01/12/17 at 16:00 Allopurinol 100 mg 100 mg BID PO Last administered on 01/18/17 09:26; Admin Dose 100 MG; Start 01/13/17 at 21:00 Ciprofloxacin/ Dextrose 200 ml @ 200 mls/hr Q24H IVPB Last administered on 21:09; Admin Dose 200 MLS/HR; Start 01/13/17 at 20:00 Potassium Chloride/Dextrose (KCl/D5W) 265 ml @ 88.333 mls/ hr ONCE PRN IVPB IF K+ <3.6; Start 01/13/17 at 19:00 Lactulose (Enulose) 20 gm Q3 PRN PO constipation; Start 01/14/17 at 18:00 Citric Acid/ Sodium Citrate (Bicitra) 30 ml TID PO Last administered on 13:57; Admin Dose 30 ML; Start 01/15/17 at 13:00 Losartan Potassium 100 mg 100 mg DAILY PO Last administered on 01/18/17 09:25 ; Admin Dose 100 MG; Start 01/16/17 at 08:00 Potassium Chloride/Dextrose/ Sod Cl (D5-1/2ns + KCl 10 Meq) 1,000 ml @ 70 mls/ hr [id number] IV Last administered on 01/18/17 13:58; Admin Dose 70 MLS/HR; Start 01/16/17 at 09:30 Metronidazole (Flagyl) 500 mg Q8 PO Last administered on 01/18/17 13:57; Admin Dose 500 MG; Start 01/17/17 at 22:00 ALEXANDRA ELIZONDO Jan 18, 2017 14:49
[2017-01-18] MEDS ORDERED: LOPERAMIDE 2 MG CAP PO PRN (15:00)
[2017-01-18 19:24] VITALS: BP 140/63; RESP 20
[2017-01-18] MEDS: FAMOTIDINE 20 MG TAB PO SCH (20:51)
[2017-01-18] MEDS: ATORVASTATIN 40 MG TAB PO SCH (20:51)
[2017-01-19 02:00] VITALS: BP 170/77; RESP 20
[2017-01-19] MEDS: metroNIDAZOLE 500 MG TAB PO SCH ×2 (05:31→14:57)
[2017-01-19] MEDS ORDERED: CIPROFLOXACIN 500 MG TAB PO SCH (06:00)
[2017-01-19 06:03] LABS: BASOPHILS % 0.3 % (0.0-2.0); EOSINOPHILS # 0.3 10^3/ul (0.0-0.5); HEMATOCRIT 30.3 % (37.0-47.0); HEMOGLOBIN 10.3 g/dl (12.0-16.0); LYMPHOCYTES # 1.6 10^3/ul (0.8-2.9); LYMPHOCYTES % 10.2 % (15.0-51.0); MEAN CORPUSCULAR HEMOGLOBIN 32.3 pg (29.0-33.0); MEAN PLATELET VOLUME 9.1 fl (7.4-10.4); MONOCYTE # 1.1 10^3/ul (0.3-0.9); MONOCYTES % 7.4 % (0.0-11.0); NEUTROPHILS % 79.5 % (39.0-77.0); PLATELET COUNT 254 10^3/UL (140-415); RED BLOOD COUNT 3.19 10^6/ul (4.20-5.40); RED CELL DISTRIBUTION WIDTH 14.2 % (11.5-14.5); WHITE BLOOD COUNT 15.4 10^3/ul (4.8-10.8)
[2017-01-19 06:47] LABS: CREATININE 0.92 mg/dl (0.44-1.00)
[2017-01-19 07:23] VITALS: BP 151/65; RESP 18
[2017-01-19] MEDS: ALLOPURINOL 100 MG TAB PO SCH (08:34)
[2017-01-19] MEDS: CITRIC ACID/NA CITRATE 30 ML CUP PO SCH ×2 (08:34→12:44)
[2017-01-19] MEDS: ESCITALOPRAM 10 MG TAB PO SCH (08:34)
[2017-01-19] MEDS: LOSARTAN 50 MG TAB PO SCH (08:34)
--- NOTE | 2017-01-19 10:10 | PN ---
Date/Time of Note Date/Time of Note DATE: 01/19/17 TIME: 10:05 Assessment/Plan VTE Prophylaxis VTE Prophylaxis Intervention: SCD's Lines/Catheters [facility] Saline Lock Urinary Cath still in place: No Assessment/Plan Assessment/Plan 76 yo female with: 1. Acute kidney injury: Improving slowly with IV fluids and conservative management. She has prerenal azotemia, and chronic medical renal disease CKD 4 per nephrology, appreciate recommendations from dexter Jurado to discharge patient from nephrology standpoint. Off IV fluids, BMP this morning completely normal which is where some for lab error, repeat BMP now Tolerating soft diet/renal diet Status post EGD and colonoscopy 01/14. Discharge planning to care home facility today. 2. Subacute diarrhea for the past 3 weeks at least, patient likely prerenal azotemia from ongoing diarrhea. Much improved. Imodium as needed, infectious etiology such as C. difficile ruled out. Leukocytosis, CT scan of the abdomen and pelvis with oral contrast did not reveal possible source of anemia; she does have diverticulosis without other findings. S/p EGD/[place] yesterday with ? diverticulitis on colonoscopy therefore patient has been on ciprofloxacin and Flagyl, will change Flagyl to p.o., rechecking stool studies Improving leukocytosis, continue current antibiotics. 3. Anemia, symptomatic, severe, acute on chronic likely. S/p EGD with finding of Duodenal Ulcer, s/p hemo-clipping, s/p total 4 units pRBCs, Hb stable so far. 4. Hypertension: Back on home medications and hold if needed 5. Anxiety/major depressive disorder: stable, worse after the of her recently. Continue home medications 6. Hyperlipidemia: Continue statin 7. Thrombocytopenia: Improving, monitor CBC. 8. Aortic aneurysm: stable at 3 cm; continue good BP control and beta narciso. Prophylaxis: Pepcid for GI prophylaxis, SCDs to lower extremity for DVT prophylaxis Disposition: Discharge to care home facility today with follow-up with nephrology within 1 week. Continue advancing diet as tolerated. Subjective 24 Hr Interval Summary Free Text/Dictation Patient feels better, still with loose stools but decreased amount she is down to approximately 2 bowel movements a day. We are advancing diet she is now on soft. No fevers, leukocytosis improving, renal function completely normal this morning which is worrisome for lab error, will repeat BMP Discharge to care home facility today with monitoring of renal function at care home facility and follow-up with nephrology as an outpatient Exam/Review of Systems Vital Signs Vitals Vital Signs Date Time Temp Pulse Resp B/P Pulse Ox O2 Delivery O2 Flow Rate FiO2 01/19/17 07:23 98.8 67 18 151/65 93 Intake and Output 01/18/17 01/18/17 01/19/17 15:00 23:00 07:00 Intake Total 600 ml 200 ml Balance 600 ml 200 ml Exam Constitutional: alert, frail, oriented Respiratory: clear to auscultation, normal air movement Cardiovascular: nl pulses, regular rate and rhythm Gastrointestinal: soft Musculoskeletal: nl extremities to inspection Extremities: normal pulses Neurological: BREAK UP WORKER II-XII intact, nl mental status, nl speech, nl strength Results Result Diagram: 01/19/1752201/19/17 0523 Results 24 hrs Laboratory Tests Test 01/19/17 05:23 White Blood Count 15.4 H Red Blood Count 3.19 L Hemoglobin 10.3 L Hematocrit 30.3 L Mean Corpuscular Volume 95.0 Mean Corpuscular Hemoglobin 32.3 Mean Corpuscular Hemoglobin Concent 34.0 Red Cell Distribution Width 14.2 Platelet Count 254 # Mean Platelet Volume 9.1 Neutrophils % 79.5 H Lymphocytes % 10.2 L Monocytes % 7.4 Eosinophils % 2.0 Basophils % 0.3 Nucleated Red Blood Cells % 0.0 Neutrophils # (Manual) 12.3 H Lymphocytes # 1.6 Monocytes # 1.1 H Eosinophils # 0.3 Basophils # 0.0 Nucleated Red Blood Cells # 0.0 Sodium Level 141 Potassium Level 4.0 Chloride Level 102 Carbon Dioxide Level 28 Anion Gap 15 Blood Urea Nitrogen 8 # Creatinine 0.92 # Glucose Level 164 Calcium Level 8.0 L Magnesium Level 2.1 Medications Medications Current Medications Ondansetron HCl (Zofran Inj) 4 mg Q6H PRN IV NAUSEA AND/OR VOMITING Last administered on 01/15/17t 22:25; Admin Dose 4 MG; Start 01/12/17 at 16:00 Acetaminophen (Tylenol Tab) 650 mg Q6H PRN PO PAIN LEVEL 1-3 OR FEVER; Start at 16:00 Acetaminophen/ Hydrocodone Bitart ([place] (5/325)) 1 tab Q6H PRN PO MODERATE PAIN LEVEL 4-6; Start 01/12/17 at 16:00 Hydromorphone HCl (Dilaudid) 0.5 mg Q4H PRN IV SEVERE PAIN LEVEL 7-10; Start at 16:00 Docusate Sodium (Colace) 100 mg Q12H PRN PO CONSTIPATION; Start 01/12/17 at 16: 00 Magnesium Hydroxide (Milk Of Mag) 30 ml DAILY PRN PO CONSTIPATION; Start at 16:00 Bisacodyl (Dulcolax Supp) 10 mg DAILY PRN [place] CONSTIPATION; Start 01/12/17 at 16 :00 Famotidine (Pepcid) 20 mg HS PO Last administered on 01/18/17 20:51; Admin Dose 20 MG; Start 01/12/17 at 21:00 Atorvastatin Calcium (Lipitor) 40 mg HS PO Last administered on 01/18/17 20:51 ; Admin Dose 40 MG; Start 01/12/17 at 21:00 Clonazepam (Klonopin) 1 mg Q8H PRN PO ANXIETY; Start 01/12/17 at 16:00 Escitalopram Oxalate (Lexapro) 10 mg DAILY PO Last administered on 01/19/17 08 :34; Admin Dose 10 MG; Start 01/13/17 at 09:00 Trazodone HCl (Desyrel) 100 mg HS PRN PO INSOMNIA Last administered on 21:09; Admin Dose 100 MG; Start 01/12/17 at 16:00 Allopurinol 100 mg 100 mg BID PO Last administered on 01/19/17 08:34; Admin Dose 100 MG; Start 01/13/17 at 21:00 Potassium Chloride/Dextrose (KCl/D5W) 265 ml @ 88.333 mls/ hr ONCE PRN IVPB IF K+ <3.6; Start 01/13/17 at 19:00 Lactulose (Enulose) 20 gm Q3 PRN PO constipation; Start 01/14/17 at 18:00 Citric Acid/ Sodium Citrate (Bicitra) 30 ml TID PO Last administered on 08:34; Admin Dose 30 ML; Start 01/15/17 at 13:00 Losartan Potassium (Cozaar) 100 mg DAILY PO Last administered on 01/19/17 08: 34; Admin Dose 100 MG; Start 01/16/17 at 08:00 Metronidazole (Flagyl) 500 mg Q8 PO Last administered on 01/19/17 05:31; Admin Dose 500 MG; Start 01/17/17 at 22:00 Ciprofloxacin (Cipro) 500 mg DAILY@06 PO Last administered on 01/19/17 05:31; Admin Dose 500 MG; Start 01/19/17 at 06:00 Loperamide HCl (Imodium Cap) 2 mg QID PRN PO DIARRHEA; Start 01/18/17 at 15:00 ALEXANDRA ELIZONDO Jan 19, 2017 10:09
--- NOTE | 2017-01-19 10:12 | PDOCDIS ---
Discharge Instructions CONDITION Patient Condition: Stable HOME CARE INSTRUCTIONS: Special Diet: soft diet to advance to regular diet as tolerated ACTIVITY: Activity Restrictions: Slowly Increase Activity FOLLOW UP/APPOINTMENTS Follow-up Plan Patient needs BMP checked Monday 01/22 Follow-up with Dr. Gil, nephrology in 1 week ALEXANDRA ELIZONDO Jan 19, 2017 10:12
[2017-01-19] MEDS ORDERED: FELODIPINE (ER) 5 MG TAB PO SCH (11:30)
[2017-01-19 11:41] LABS: CALCIUM 7.8 mg/dl (8.4-10.2); CREATININE 3.11 mg/dl (0.44-1.00); POTASSIUM 5.1 mmol/L (3.5-5.1)
--- NOTE | 2017-01-19 12:18 | CONS ---
Date/Time of Note Date/Time of Note DATE: 01/19/17 TIME: 12:17 Assessment/Plan Assessment/Plan Additional Assessment/Plan 1. acute kidney injury 2/2 severe prerenal azotemia, no previous Cr available for comparison 2. pt has CKD possibly due to HTN 3. HTN 4. hyperlipidemia 5. anxiety, depression 6. Hyperuricemia- will start on Allopurinol 100m g po BID 7. Stool for occult blood- positive. SP EGD/ colonoscopy 8. Anemia- SP 2 PRBC transfusion yesterday- H/H IMPROVED. - GI following Plan: Cr 3.1 today Expecting BUN/Cr to improve with IVF hydration but pt has CKD IV likely because her kidneys are atrophic and echogenic Follow up with me in [facility] 1-2 week after discharge([phone]) will follow up Consultation Date/Type/Reason Admit Date/Time Jan 12, 2017 at 14:52 Initial Consult Date 01/12/17 Type of Consultation: NEPHROLOGY Referring Provider: ALEXANDRA ELIZONDO 24 HR Interval Summary Free Text/Dictation pt stable Cr 3.11 Exam/Review of Systems Vital Signs Vitals Vital Signs Date Time Temp Pulse Resp B/P Pulse Ox O2 Delivery O2 Flow Rate FiO2 01/19/17 07:23 98.8 67 18 151/65 93 Intake and Output 01/18/17 01/18/17 01/19/17 15:00 23:00 07:00 Intake Total 600 ml 200 ml Balance 600 ml 200 ml Results Result Diagram: 01/19/17 0523 01/19/17 1110 Results 24 hrs Laboratory Tests Test 01/19/17 05:23 01/19/17 11:10 White Blood Count 15.4 H Red Blood Count 3.19 L Hemoglobin 10.3 L Hematocrit 30.3 L Mean Corpuscular Volume 95.0 Mean Corpuscular Hemoglobin 32.3 Mean Corpuscular Hemoglobin Concent 34.0 Red Cell Distribution Width 14.2 Platelet Count 254 # Mean Platelet Volume 9.1 Neutrophils % 79.5 H Lymphocytes % 10.2 L Monocytes % 7.4 Eosinophils % 2.0 Basophils % 0.3 Nucleated Red Blood Cells % 0.0 Neutrophils # (Manual) 12.3 H Lymphocytes # 1.6 Monocytes # 1.1 H Eosinophils # 0.3 Basophils # 0.0 Nucleated Red Blood Cells # 0.0 Sodium Level 141 134 L Potassium Level 4.0 5.1 Chloride Level 102 98 Carbon Dioxide Level 28 26 Anion Gap 15 15 Blood Urea Nitrogen 8 # 38 #H Creatinine 0.92 # 3.11 #H Glucose Level 164 92 # Calcium Level 8.0 L 7.8 L Magnesium Level 2.1 Medications Medications Current Medications Ondansetron HCl (Zofran Inj) 4 mg Q6H PRN IV NAUSEA AND/OR VOMITING Last administered on 01/15/17 22:25; Admin Dose 4 MG; Start 01/12/17 at 16:00 Acetaminophen (Tylenol Tab) 650 mg Q6H PRN PO PAIN LEVEL 1-3 OR FEVER; Start at 16:00 Acetaminophen/ Hydrocodone Bitart ([place] (5/325)) 1 tab Q6H PRN PO MODERATE PAIN LEVEL 4-6; Start 01/12/17 at 16:00 Hydromorphone HCl (Dilaudid) 0.5 mg Q4H PRN IV SEVERE PAIN LEVEL 7-10; Start at 16:00 Docusate Sodium (Colace) 100 mg Q12H PRN PO CONSTIPATION; Start 01/12/17 at 16: 00 Magnesium Hydroxide (Milk Of Mag) 30 ml DAILY PRN PO CONSTIPATION; Start at 16:00 Bisacodyl (Dulcolax Supp) 10 mg DAILY PRN [place] CONSTIPATION; Start 01/12/17 at 16 :00 Famotidine (Pepcid) 20 mg HS PO Last administered on 01/18/17 20:51; Admin Dose 20 MG; Start 01/12/17 at 21:00 Atorvastatin Calcium (Lipitor) 40 mg HS PO Last administered on 01/18/17 20:51 ; Admin Dose 40 MG; Start 01/12/17 at 21:00 Clonazepam (Klonopin) 1 mg Q8H PRN PO ANXIETY; Start 01/12/17 at 16:00 Escitalopram Oxalate (Lexapro) 10 mg DAILY PO Last administered on 01/19/17 08 :34; Admin Dose 10 MG; Start 01/13/17 at 09:00 Trazodone HCl (Desyrel) 100 mg HS PRN PO INSOMNIA Last administered on 21:09; Admin Dose 100 MG; Start 01/12/17 at 16:00 Allopurinol (Zyloprim) 100 mg BID PO Last administered on 01/19/17 08:34; Admin Dose 100 MG; Start 01/13/17 at 21:00 Lactulose (Enulose) 20 gm Q3 PRN PO constipation; Start 01/14/17 at 18:00 Citric Acid/ Sodium Citrate (Bicitra) 30 ml TID PO Last administered on 08:34; Admin Dose 30 ML; Start 01/15/17 at 13:00 Losartan Potassium (Cozaar) 100 mg DAILY PO Last administered on 01/19/17 08: 34; Admin Dose 100 MG; Start 01/16/17 at 08:00 Metronidazole (Flagyl) 500 mg Q8 PO Last administered on 01/19/17 05:31; Admin Dose 500 MG; Start 01/17/17 at 22:00 Ciprofloxacin (Cipro) 500 mg DAILY@06 PO Last administered on 01/19/17 05:31; Admin Dose 500 MG; Start 01/19/17 at 06:00 Loperamide HCl (Imodium Cap) 2 mg QID PRN PO DIARRHEA; Start 01/18/17 at 15:00 Felodipine (Plendil) 5 mg DAILY PO ; Start 01/19/17 at 11:30 JESSE STEELE MD Jan 19, 2017 12:18
[2017-01-19 12:23] VITALS: BP 143/61; RESP 20
[2017-01-19 14:53] VITALS: BP 113/57; RESP 18
== END 2017-01-19 17:35 | DRG 811 ==
LOC: E/R 09:22 → MS2 14:52
PROVIDERS: ADMIT Internal Medicine; ATTEND Internal Medicine
PROC: 30233N1 Transfusion of Nonautologous Red Blood Cells into Peripheral Vein, Percutaneous Approach (ICD-10-PCS; 2017-01-12)
PROC: 0DBE8ZX Excision of Large Intestine, Via Natural or Artificial Opening Endoscopic, Diagnostic (ICD-10-PCS; 2017-01-14)
PROC: 0W3P8ZZ Control Bleeding in Gastrointestinal Tract, Via Natural or Artificial Opening Endoscopic (ICD-10-PCS; principal; 2017-01-14 12:30)
PROC: 0DB68ZX Excision of Stomach, Via Natural or Artificial Opening Endoscopic, Diagnostic (ICD-10-PCS; 2017-01-14 12:30)
DX: D62 Acute posthemorrhagic anemia (principal); K26.4 Chronic or unspecified duodenal ulcer with hemorrhage; N17.9 Acute kidney failure, unspecified; N18.4 Chronic kidney disease, stage 4 (severe); E86.0 Dehydration; K31.84 Gastroparesis; E83.39 Other disorders of phosphorus metabolism; Z68.1 Body mass index [BMI] 19.9 or less, adult; D50.0 Iron deficiency anemia secondary to blood loss (chronic); I12.9 Hypertensive chronic kidney disease with stage 1 through stage 4 chronic kidney disease, or unspecified chronic kidney disease; Z72.0 Tobacco use; R19.7 Diarrhea, unspecified; F41.8 Other specified anxiety disorders; R63.4 Abnormal weight loss; R10.32 Left lower quadrant pain; I71.9 Aortic aneurysm of unspecified site, without rupture; K44.9 Diaphragmatic hernia without obstruction or gangrene; K29.70 Gastritis, unspecified, without bleeding; K21.0 Gastro-esophageal reflux disease with esophagitis; K57.30 Diverticulosis of large intestine without perforation or abscess without bleeding; E79.0 Hyperuricemia without signs of inflammatory arthritis and tophaceous disease; N26.1 Atrophy of kidney (terminal)
CPT/HCPCS: 36415; 36430; 74176; 76775; 80048; 80053; 80069; 82270; 82550; 82607; 82728; 82746; 83540; 83690; 83735; 84100; 84484; 84560; 85014; 85018; 85025; 85045; 86674; 86850; 86900; 86901; 86920; 87045; 87075; 87081; 88305; 88312; 93005; 96374; J0744; J2405; J3475; J3480; J7030; J7040; J7070; P9016